=== PATIENT | female | born 1990 | race Caucasian/White ===

== ENCOUNTER 2016-07-05 10:38 | Emergency (ER) | payer MEDICAID ==
[2016-07-05 10:47] VITALS: BP 114/75
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
== END 2016-07-05 11:15 | disposition left against medical advice (07) ==
LOC: ER 10:38
DX: R68.89 Other general symptoms and signs (principal); K21.9 Gastro-esophageal reflux disease without esophagitis; Z91.040 Latex allergy status; Z91.013 Allergy to seafood; Z91.018 Allergy to other foods
CPT/HCPCS: 99281

== ENCOUNTER → 2016-08-17 | Outpatient (CLI) | payer MEDICAID | LOC: WI 10:19 | PROVIDERS: ATTEND Family Medicine | DX: N63 Unspecified lump in breast (principal) | CPT/HCPCS: 76641 ==

== ENCOUNTER → 2016-09-28 | Day surgery (SDC) | payer MEDICAID ==
[~2016-09-28] MED LIST: BETAMET ACET/BETAMET NA INJ 6 MG/1 ML ONE; BUPIVACAINE HCL 0.5 % INJ/PF 30 ML SDV ONE; METHYLPREDNISOLONE ACETATE INJ 40 MG/1 ML ML ONE
== END ==
LOC: CCL 12:34
PROVIDERS: ATTEND Radiology Radiation Oncology
PROC: 3E0U33Z Introduction of Anti-inflammatory into Joints, Percutaneous Approach (ICD-10-PCS; principal; 2016-09-28)
DX: M54.16 Radiculopathy, lumbar region (principal)
CPT/HCPCS: 77003; 62322; 64493; Q9966; J1020; J0702

== ENCOUNTER 2016-09-29 10:05 | Day surgery (SDC) | payer MEDICAID ==
[2016-09-29] MEDS ORDERED: NALOXONE HCL INJ/PF 0.4 MG/1 ML SDV ONE (10:09)
[2016-09-29] MEDS ORDERED: ONDANSETRON HCL INJ/PF 4 MG/2 ML SDV ONE (10:09)
[2016-09-29] MEDS ORDERED: DIPHENHYDRAMINE HCL 50 MG/ML VIAL ONE (10:09)
[2016-09-29] MEDS ORDERED: FLUMAZENIL INJ 0.5 MG/5 ML VIAL IV ONE (10:10)
[2016-09-29] MEDS ORDERED: EPINEPHRINE INJ 1 MG/10 ML DISP.SYRIN ONE (10:10)
[2016-09-29] MEDS ORDERED: GLUCAGON,HUMAN RECOMB 1 MG INJ ONE (10:10)
[2016-09-29] MEDS: MIDAZOLAM 2 MG/2 ML INJ ONE ×2 (11:58→12:04)
[2016-09-29] MEDS: FENTANYL CITRATE INJ/PF 100 MCG/2 ML AMPUL ONE ×2 (12:00→12:02)
--- NOTE | 2016-09-29 12:10 | Operative Report ---
Operative Report DATE OF SURGERY: 09/29/16 Operative Report: The risks benefits and alternatives of the procedure explained to the patient in detail and informed consent is obtained. A GIF Olympus video scope was inserted into the patient's mouth and hypopharynx ,the esophagus is identified intubated and insufflated ,the scope was then advanced through the esophagus stomach and duodenum ,retroflexion maneuver is done, the esophagus stomach and first and second portions of the duodenum examined PREOPERATIVE DIAGNOSIS: Possible GI bleeding POSTOPERATIVE DIAGNOSIS: Gastric erosion. Gastritis. No active bleeding noted OPERATION: EGD with biopsy SURGEON: FLORIN SOFIA ANESTHESIA: Moderate Sedation - 4 mg of Versed, fentanyl. Conscious sedation monitoring time 30 minutes. TISSUE REMOVED OR ALTERED: Gastric specimen obtained to rule out Helicobacter pylori COMPLICATIONS: None. ESTIMATED BLOOD LOSS: None. INTRAOPERATIVE FINDINGS: As described above. Normal esophagus. First and second portions of the duodenum are normal. PROCEDURE: Patient tolerated the procedure well. No immediate postprocedure complications are noted. Patient discharged in good condition. Discharge date 09/29/2016. Discharge diet: Regular. Discharge activity: Regular. 2-3 week follow-up to discuss findings. We will wait on biopsies. Patient was instructed to call the office or proceed to the emergency room should there be any further problems or questions.
[2016-09-29 13:12] VITALS: BP 102/59
== END 2016-09-29 13:15 | disposition home or self-care (01) ==
LOC: END 10:05
PROVIDERS: ATTEND Internal Medicine Gastroenterology
PROC: 0DB68ZX Excision of Stomach, Via Natural or Artificial Opening Endoscopic, Diagnostic (ICD-10-PCS; principal; 2016-09-29 10:30)
DX: K29.50 Unspecified chronic gastritis without bleeding (principal); K25.9 Gastric ulcer, unspecified as acute or chronic, without hemorrhage or perforation; K21.9 Gastro-esophageal reflux disease without esophagitis; K92.1 Melena; F17.210 Nicotine dependence, cigarettes, uncomplicated; G43.909 Migraine, unspecified, not intractable, without status migrainosus; K29.51 Unspecified chronic gastritis with bleeding; Z88.5 Allergy status to narcotic agent; Z88.8 Allergy status to other drugs, medicaments and biological substances; Z91.040 Latex allergy status
CPT/HCPCS: 43239; 88305 ×2; J2250; J3010; J0171; J1200; J1610; J2310; J2405; J3490

== ENCOUNTER 2016-12-25 09:35 | Day surgery (SDC) | payer MEDICAID ==
[~2016-12-25 09:35] MED LIST changes: -BETAMET ACET/BETAMET NA INJ 6 MG/1 ML ONE; -BUPIVACAINE HCL 0.5 % INJ/PF 30 ML SDV ONE; -METHYLPREDNISOLONE ACETATE INJ 40 MG/1 ML ML ONE; +PROPOFOL INJ 200 MG/20 ML VIAL IV ONE
[2016-12-25 11:28] VITALS: BP 100/64
--- NOTE | 2016-12-25 14:00 | Operative Report ---
Operative Report DATE OF SURGERY: 12/25/16 Operative Report: The risks, benefits and alternatives of the procedure including risks of bleeding, perforation requiring surgery are explained to the patient detail and informed consent was obtained. Patient was taken back to the endoscopy suite and placed in the left, lateral decubital position. Timeout was called. Propofol medications administered. A rectal examination was done which did not reveal any masses, tears or fissures. An Olympus videoscope was inserted into the patient's rectum. The scope was then carefully advanced all the way to the cecum. The cecum was identified by the usual anatomical landmarks including the ileocecal valve as well as the appendiceal office. Photodocumentation is obtained. The scope was then sequentially pulled back via the various segments of the colon including the ascending colon, hepatic flexure, transverse colon, splenic flexure, descending colon and finally to the rectosigmoid portions of the colon. Retroflexion maneuver was performed. PREOPERATIVE DIAGNOSIS: Abdominal pain, change of bowel habits rule out Crohn's disease POSTOPERATIVE DIAGNOSIS: Biopsy specimens obtained in the terminal ileum rule out Crohn's disease; there is some mild nodularity that is observed. Internal hemorrhoids OPERATION: Colonoscopy with biopsy SURGEON: FLORIN SOFIA ANESTHESIA: LMAC TISSUE REMOVED OR ALTERED: Small intestinal specimen obtained as noted in the terminal ileum COMPLICATIONS: None. ESTIMATED BLOOD LOSS: None. INTRAOPERATIVE FINDINGS: As described above. Rest of the colon normal. PROCEDURE: Patient tolerated procedure well. No immediate postprocedure complications are noted. Patient discharged in good condition. Discharge date 12/25/2016. Discharge diet: Regular. Discharge activity: Regular. 2-3 week follow-up to discuss findings. We will wait on pathology. Patient is instructed to call the office or proceed to the emergency room should there be any further problems or questions.
== END 2016-12-25 11:26 | disposition home or self-care (01) ==
LOC: END 09:35
PROVIDERS: ATTEND Internal Medicine Gastroenterology
PROC: 0DBB8ZX Excision of Ileum, Via Natural or Artificial Opening Endoscopic, Diagnostic (ICD-10-PCS; principal; 2016-12-25 14:00)
DX: K64.8 Other hemorrhoids (principal); K92.1 Melena; K21.9 Gastro-esophageal reflux disease without esophagitis; J45.40 Moderate persistent asthma, uncomplicated; F31.9 Bipolar disorder, unspecified; F17.210 Nicotine dependence, cigarettes, uncomplicated; G43.519 Persistent migraine aura without cerebral infarction, intractable, without status migrainosus; Z79.51 Long term (current) use of inhaled steroids; Z79.899 Other long term (current) drug therapy
CPT/HCPCS: 45380; 810; 88305; J2704

== ENCOUNTER → 2017-01-25 | Outpatient (CLI) | payer MEDICAID ==
--- NOTE | 2017-01-25 17:14 | RADIOLOGY REPORT (SQ) ---
EXAM DESCRIPTION: HIP LEFT AP/LATERAL COMPLETED DATE/TIME: 01/25/2017 2:59 pm REASON FOR STUDY: PAIN IN LEFT HIP M25.552 PAIN IN LEFT HIP COMPARISON: 07/06/2014, 10/16/2015, 04/22/2016 NUMBER OF VIEWS: Two views. TECHNIQUE: AP pelvis and additional frog-leg view of the left hip. LIMITATIONS: None. FINDINGS: MINERALIZATION: Normal. LEFT HIP: No fracture or dislocation. A left hip prosthesis is present, with an acetabular cup ancho red with a single screw. There is faint lucency around the lower half of the femoral component hardw are worrisome for loosening. RIGHT HIP: No fracture or dislocation. No worrisome bone lesions. PUBIS AND ISCHIUM: No fracture. PELVIS: No fracture. SACRUM: No fracture or dislocation. No worrisome bone lesions. LOWER LUMBAR SPINE: No fracture or dislocation. No worrisome bone lesions. No significant disc disea se. SOFT TISSUES: No findings. OTHER: No other significant finding. IMPRESSION: Left hip prosthesis in good positioning. No fracture. There is lucency around the inferior half of the femoral component of the prosthesis. This could ind icate loosening. Consider bone scan for followup TECHNICAL DOCUMENTATION: JOB ID: [id number] [employer]- All Rights Reserved
== END ==
LOC: OD 14:26
PROVIDERS: ATTEND Family Medicine
DX: M25.552 Pain in left hip (principal)

== ENCOUNTER 2017-02-11 19:05 | Emergency (ER) | payer MEDICAID ==
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
[2017-02-11 20:14] LABS: ABSOLUTE BASOPHILS # (AUTO) 0.1 10^3/uL (0.0-0.2); ABSOLUTE EOSINOPHILS # (AUTO) 0.3 10^3/uL (0.0-0.6); ABSOLUTE LYMPHOCYTES (AUTO) 4.1 10^3/uL (0.5-4.7); ABSOLUTE MONOCYTES (AUTO) 0.7 10^3/uL (0.1-1.4); ABSOLUTE NEUT (AUTO) 6.4 10^3/uL (1.7-8.2); BASOPHILS % (AUTO) 0.5 % (0-2); EOSINOPHILS % (AUTO) 2.5 % (0-6); HEMOGLOBIN 13.1 g/dL (12.0-15.5); HGB HCT DIFFERENCE 0.3; LYMPHOCYTES % (AUTO) 35.3 % (13-45); MEAN CORPUSCULAR HEMOGLOBIN 26.6 pg (27.0-33.4); MEAN CORPUSCULAR HGB CONC 33.6 g/dL (32.0-36.0); MEAN CORPUSCULAR VOLUME 79 fl (80-97); MONOCYTES % (AUTO) 6.3 % (3-13); RED BLOOD COUNT 4.91 10^6/uL (3.72-5.28); RED CELL DISTRIBUTION WIDTH 14.3 % (11.5-14.0); SEGMENTED NEUTROPHILS % (AUTO) 55.4 % (42-78); WHITE BLOOD COUNT 11.6 10^3/uL (4.0-10.5)
[2017-02-11 20:32] LABS: ADD ON TESTING BLD IN LAB ACKNOWLEDGE
[2017-02-11 20:36] LABS: ANION GAP 10 (5-19); BLOOD UREA NITROGEN 9 mg/dL (7-20); CALCIUM 9.2 mg/dL (8.4-10.2); CARBON DIOXIDE 25 mmol/L (22-30); CHLORIDE 104 mmol/L (98-107); CREATININE RESULT 0.84 mg/dL (0.52-1.25); GLUCOSE 163 mg/dL (75-110); POTASSIUM 4.1 mmol/L (3.6-5.0); SODIUM 138.8 mmol/L (137-145)
[2017-02-11 20:43] LABS: C-REACTIVE PROTEIN 19.9 mg/L (<10.0)
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
--- NOTE | 2017-02-11 22:00 | RADIOLOGY REPORT (SQ) ---
EXAM DESCRIPTION: HIP LEFT AP/LATERAL COMPLETED DATE/TIME: 02/11/2017 9:00 pm REASON FOR STUDY: pain COMPARISON: None. NUMBER OF VIEWS: Two views. TECHNIQUE: AP pelvis and additional frog-leg view of the left hip. LIMITATIONS: None. FINDINGS: MINERALIZATION: Normal. LEFT HIP: No fracture or dislocation. Left total hip arthroplasty hardware appears in expected posit ion. . RIGHT HIP: No fracture or dislocation. No worrisome bone lesions. PUBIS AND ISCHIUM: No fracture. PELVIS: No fracture. SACRUM: No fracture or dislocation. No worrisome bone lesions. LOWER LUMBAR SPINE: No fracture or dislocation. No worrisome bone lesions. No significant disc disea se. SOFT TISSUES: No findings. OTHER: No other significant finding. IMPRESSION: NO RADIOGRAPHIC EVIDENCE OF ACUTE INJURY. TECHNICAL DOCUMENTATION: JOB ID: [id number] [employer]- All Rights Reserved
[2017-02-11 22:03] VITALS: BP 139/80
== END 2017-02-11 21:55 | disposition home or self-care (01) ==
LOC: ER 19:05
DX: M25.552 Pain in left hip (principal); F17.200 Nicotine dependence, unspecified, uncomplicated
CPT/HCPCS: 36415; 80048; 84703; 85025; 85652; 86140; 87040; 99284

== ENCOUNTER → 2017-02-14 | Outpatient (CLI) | payer MEDICAID ==
[2017-02-14 15:27] LABS: ABSOLUTE EOSINOPHILS # (AUTO) 0.2 10^3/uL (0.0-0.6); ABSOLUTE LYMPHOCYTES (AUTO) 3.5 10^3/uL (0.5-4.7); ABSOLUTE MONOCYTES (AUTO) 0.8 10^3/uL (0.1-1.4); BASOPHILS % (AUTO) 0.4 % (0-2); EOSINOPHILS % (AUTO) 1.5 % (0-6); HEMATOCRIT 37.6 % (36.0-47.0); HEMOGLOBIN 12.7 g/dL (12.0-15.5); HGB HCT DIFFERENCE 0.5; LYMPHOCYTES % (AUTO) 30.2 % (13-45); MEAN CORPUSCULAR HEMOGLOBIN 26.5 pg (27.0-33.4); MEAN CORPUSCULAR HGB CONC 33.6 g/dL (32.0-36.0); MEAN CORPUSCULAR VOLUME 79 fl (80-97); MONOCYTES % (AUTO) 6.9 % (3-13); RED BLOOD COUNT 4.77 10^6/uL (3.72-5.28); RED CELL DISTRIBUTION WIDTH 14.3 % (11.5-14.0); WHITE BLOOD COUNT 11.5 10^3/uL (4.0-10.5)
[2017-02-14 15:44] LABS: ANION GAP 11 (5-19); BLOOD UREA NITROGEN 11 mg/dL (7-20); CALCIUM 9.2 mg/dL (8.4-10.2); CARBON DIOXIDE 24 mmol/L (22-30); CHLORIDE 103 mmol/L (98-107); CREATININE RESULT 0.86 mg/dL (0.52-1.25); GLUCOSE 105 mg/dL (75-110); POTASSIUM 4.1 mmol/L (3.6-5.0); SODIUM 137.8 mmol/L (137-145)
[2017-02-14 16:08] LABS: ERYTHROCYTE SEDIMENTATION RATE 28 mm/hr (0-20)
== END ==
LOC: OD 14:47
PROVIDERS: ATTEND Orthopaedic Surgery
DX: T84.52XA Infection and inflammatory reaction due to internal left hip prosthesis, initial encounter (principal)
CPT/HCPCS: 36415; 80048; 82330; 85025; 85652; 86140

== ENCOUNTER → 2017-02-19 | Outpatient (CLI) | payer MEDICAID ==
--- NOTE | 2017-02-19 17:36 | RADIOLOGY REPORT (SQ) ---
EXAM DESCRIPTION: NM 3 PHASE BONE SCAN COMPLETED DATE/TIME: 02/19/2017 3:59 pm REASON FOR STUDY: L HIP PAIN M25.50 PAIN IN UNSPECIFIED JOINT M25.552 PAIN IN LEFT HIP COMPARISON: Bone scan 01/13/2016 hip radiographs 02/11/2017 RADIONUCLIDE AND DOSE: 20 millicuries Tc99m HDP. The route of agent administration: Intravenous. ADDITIONAL DRUGS AND DOSES: None. TECHNIQUE: Following injection of the radiopharmaceutical, serial blood flow images acquired. Equil ibrium blood pool images then acquired. Routine delayed images at 3 hours acquired of the areas of c linical concern with additional focused images as needed. AREA OF INTEREST: Left hip LIMITATIONS: None. FINDINGS: VASCULAR FLOW IMAGES: No asymmetry or focal areas of hyperemia. BLOOD POOL IMAGES: No asymmetry or focal areas of soft-tissue hyper-perfusion. BONES: Photopenia in the left hip from the left hip arthroplasty. KIDNEYS: Not included. OTHER: No other significant finding. IMPRESSION: Normal 3 phase bone scan. There is no evidence of infection. COMMENT: Quality measure 147: Current bone scan is compared with any available plain radiographs, p rior bone scans, and CT/MRI. TECHNICAL DOCUMENTATION: JOB ID: [id number] [employer]- All Rights Reserved
== END ==
LOC: RAD 11:17
PROVIDERS: ATTEND Orthopaedic Surgery
DX: M25.552 Pain in left hip (principal)
CPT/HCPCS: 78315; A9561; Q9969

== ENCOUNTER → 2017-04-23 | Outpatient (CLI) | payer MEDICAID ==
--- NOTE | 2017-04-23 15:56 | RADIOLOGY REPORT (SQ) ---
EXAM DESCRIPTION: HIP LEFT AP/LATERAL COMPLETED DATE/TIME: 04/23/2017 3:13 pm REASON FOR STUDY: PAIN IN LEFT HIP M25.552 PAIN IN LEFT HIP COMPARISON: Three-phase bone scan 02/19/2017 Left hip films 02/11/2017, 01/25/2017 NUMBER OF VIEWS: Two views. TECHNIQUE: AP pelvis and additional frog-leg view of the left hip. LIMITATIONS: None. FINDINGS: MINERALIZATION: Normal. LEFT HIP: Left hip replacement in good alignment. No lucency around the hardware worrisome for loose luis RIGHT HIP: No fracture or dislocation. No worrisome bone lesions. PUBIS AND ISCHIUM: No fracture. PELVIS: No fracture. SACRUM: No fracture or dislocation. No worrisome bone lesions. LOWER LUMBAR SPINE: No fracture or dislocation. No worrisome bone lesions. No significant disc disea se. SOFT TISSUES: No findings. OTHER: No other significant finding. IMPRESSION: Left hip replacement in good alignment. No lucency around the hardware worrisome for lo osening TECHNICAL DOCUMENTATION: JOB ID: [id number]- All Rights Reserved
== END ==
LOC: OD 14:55
PROVIDERS: ATTEND Nurse Practitioner Acute Care
DX: M25.552 Pain in left hip (principal)

== ENCOUNTER 2017-04-24 19:10 | Emergency (ER) | payer MEDICAID ==
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
--- NOTE | 2017-04-24 22:11 | RADIOLOGY REPORT (SQ) ---
EXAM DESCRIPTION: CHEST SINGLE VIEW COMPLETED DATE/TIME: 04/24/2017 9:44 pm REASON FOR STUDY: chest pain COMPARISON: 01/20/2015. EXAM PARAMETERS: NUMBER OF VIEWS: One view. TECHNIQUE: Single frontal radiographic view of the chest acquired. RADIATION DOSE: NA LIMITATIONS: None. FINDINGS: LUNGS AND PLEURA: No opacities, masses or pneumothorax. No pleural effusion. MEDIASTINUM AND HILAR STRUCTURES: No masses. Contour normal. HEART AND VASCULAR STRUCTURES: Heart normal in size. Normal vasculature. BONES: No acute findings. HARDWARE: None in the chest. OTHER: No other significant finding. IMPRESSION: NO ACUTE RADIOGRAPHIC FINDING IN THE CHEST. TECHNICAL DOCUMENTATION: JOB ID: [id number] [employer]- All Rights Reserved
[2017-04-24 22:16] LABS: ABSOLUTE EOSINOPHILS # (AUTO) 0.2 10^3/uL (0.0-0.6); ABSOLUTE LYMPHOCYTES (AUTO) 3.4 10^3/uL (0.5-4.7); ABSOLUTE MONOCYTES (AUTO) 0.6 10^3/uL (0.1-1.4); ABSOLUTE NEUT (AUTO) 4.2 10^3/uL (1.7-8.2); BASOPHILS % (AUTO) 0.5 % (0-2); EOSINOPHILS % (AUTO) 2.5 % (0-6); HEMATOCRIT 35.6 % (36.0-47.0); HEMOGLOBIN 11.9 g/dL (12.0-15.5); HGB HCT DIFFERENCE 0.1; LYMPHOCYTES % (AUTO) 40.4 % (13-45); MEAN CORPUSCULAR HEMOGLOBIN 26.6 pg (27.0-33.4); MEAN CORPUSCULAR HGB CONC 33.5 g/dL (32.0-36.0); MEAN CORPUSCULAR VOLUME 79 fl (80-97); MONOCYTES % (AUTO) 7.3 % (3-13); RED BLOOD COUNT 4.48 10^6/uL (3.72-5.28); RED CELL DISTRIBUTION WIDTH 15.4 % (11.5-14.0); SEGMENTED NEUTROPHILS % (AUTO) 49.3 % (42-78); WHITE BLOOD COUNT 8.4 10^3/uL (4.0-10.5)
[2017-04-24 22:25] LABS: ALANINE AMINOTRANSFERASE 29 U/L (9-52); ALBUMIN 3.7 g/dL (3.5-5.0); ALKALINE PHOSPHATASE 77 U/L (38-126); ANION GAP 10 (5-19); ASPARTATE AMINO TRANSFERASE 15 U/L (14-36); BILIRUBIN,DIRECT 0.3 mg/dL (0.0-0.4); BILIRUBIN,TOTAL 0.3 mg/dL (0.2-1.3); BLOOD UREA NITROGEN 12 mg/dL (7-20); CALCIUM 9.3 mg/dL (8.4-10.2); CARBON DIOXIDE 25 mmol/L (22-30); CHLORIDE 106 mmol/L (98-107); CREATININE RESULT 0.94 mg/dL (0.52-1.25); GLUCOSE 106 mg/dL (75-110); TOTAL PROTEIN 6.9 g/dL (6.3-8.2)
[2017-04-24 22:28] LABS: APPEARANCE,URINE CLEAR; BILIRUBIN,URINE NEGATIVE (NEGATIVE); GLUCOSE, URINE NEGATIVE (NEGATIVE); KETONES,URINE NEGATIVE (NEGATIVE); LEUKOCYTE ESTERASE,URINE NEGATIVE (NEGATIVE); NITRITE,URINE NEGATIVE (NEGATIVE); PROTEIN,URINE NEGATIVE (NEGATIVE); URINE SPECIFIC GRAVITY 1.015; UROBILINOGEN,URINE NEGATIVE mg/dL (<2.0)
--- NOTE | 2017-04-24 23:11 | EKG REPORT ---
SEVERITY:- BORDERLINE ECG - SINUS TACHYCARDIA BORDERLINE T ABNORMALITIES, INFERIOR LEADS : Confirmed by: Marcellus Green 24-Apr-2017 23:10:41
--- NOTE | 2017-04-24 23:44 | RADIOLOGY REPORT (SQ) ---
EXAM DESCRIPTION: CTA CHEST COMPLETED DATE/TIME: 04/24/2017 11:31 pm REASON FOR STUDY: chest pain rt side COMPARISON: None. TECHNIQUE: CT scan of the chest performed using helical scanning technique with dynamic intravenous contrast injection. Images reviewed with lung, soft tissue and bone windows. Reconstructed coronal and sagittal MPR images reviewed. Additional 3 dimensional post-processing performed to develop Maximal Intensity Projection images (OR P). All images stored on PACS. All CT scanners at this facility use dose modulation, iterative reconstruction, and/or weight based d osing when appropriate to reduce radiation dose to as low as reasonably achievable (ALARA). [facility]: Dose Right [facility]: CareDose [facility]: Dose Right [facility]: Teradose 4D [facility]: Mobilitus CONTRAST TYPE AND DOSE: contrast/concentration: Isovue 370.00 mg/ml; Total Contrast Delivered: 78.0 ml; Total Saline Delivered: 50.0 ml Contrast bolus adequate for pulmonary arteries and aorta. RENAL FUNCTION: Creatinine 0.94. RADIATION DOSE: CT Rad equipment meets quality standard of care and radiation dose reduction techniq ues were employed. CTDIvol: 14.9 - 22.7 mGy. DLP: 861 mGy-cm. . LIMITATIONS: None. FINDINGS: LUNGS AND PLEURA: Minimal faint ground-glass opacities in the right lower lobe. No masses , infiltrates, pneumothorax. No pleural effusions, calcifications. AORTA AND GREAT VESSELS: No aneurysm. Contrast bolus not optimized for the aorta. HEART: No pericardial effusion. No significant coronary artery calcifications. PULMONARY ARTERIES: No emboli visualized in the main pulmonary arteries or the segmental branches. HILAR AND MEDIASTINAL STRUCTURES: No identified masses or abnormal nodes. HARDWARE: None in the chest. UPPER ABDOMEN: No significant findings. Limited exam. THYROID AND OTHER SOFT TISSUES: No masses. No adenopathy. BONES: No acute or significant finding. 3D MIPS: Confirm above findings. OTHER: No other significant finding. IMPRESSION: NORMAL CTA OF THE CHEST. NO PULMONARY EMBOLI. A FEW MINIMAL FAINT GROUND-GLASS OPACITIES IN THE RIGHT LOWER LOBE. NONSPECIFIC. MAY BE DUE TO ATEL ECTASIS OR MILD PNEUMONITIS. COMMENT: Quality ID # [id number]: Final reports with documentation of one or more dose reduction techniques (e.g., Automated exposure control, adjustment of the mA and/or kV according to patient size, use of iterative reconstruction technique) TECHNICAL DOCUMENTATION: JOB ID: [id number] [facility]- All Rights Reserved
[2017-04-25 00:05] VITALS: BP 119/78
== END 2017-04-25 00:10 | disposition home or self-care (01) ==
LOC: ER 19:10
DX: J18.1 Lobar pneumonia, unspecified organism (principal); R07.9 Chest pain, unspecified; F17.200 Nicotine dependence, unspecified, uncomplicated; K21.9 Gastro-esophageal reflux disease without esophagitis; Z96.642 Presence of left artificial hip joint; Z98.51 Tubal ligation status; Z90.710 Acquired absence of both cervix and uterus; Z91.013 Allergy to seafood
CPT/HCPCS: 36415; 71010; 71275; 80053; 81001; 84484; 85025; 85379; 93005; 93010; 99285

== ENCOUNTER 2017-05-09 15:40 | Emergency (ER) | payer MEDICAID ==
[2017-05-09] MEDS ORDERED: NORMAL SALINE 1000 ML 1,000 ML IV ONE (16:44)
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
--- NOTE | 2017-05-09 17:10 | RADIOLOGY REPORT (SQ) ---
EXAM DESCRIPTION: CHEST PA/LAT COMPLETED DATE/TIME: 05/09/2017 4:57 pm REASON FOR STUDY: cough; eval for improv vs worsening of RLL pna COMPARISON: 01/20/2015 EXAM PARAMETERS: NUMBER OF VIEWS: two views TECHNIQUE: Digital Frontal and Lateral radiographic views of the chest acquired. RADIATION DOSE: NA LIMITATIONS: none FINDINGS: LUNGS AND PLEURA: No opacities, masses or pneumothorax. No pleural effusion. MEDIASTINUM AND HILAR STRUCTURES: No masses or contour abnormalities. HEART AND VASCULAR STRUCTURES: Heart normal size. No evidence for failure. BONES: No acute findings. HARDWARE: None in the chest. OTHER: No other significant finding. IMPRESSION: NO SIGNIFICANT RADIOGRAPHIC FINDING IN THE CHEST. TECHNICAL DOCUMENTATION: JOB ID: [id number] [employer]- All Rights Reserved
[2017-05-09 17:22] LABS: ABSOLUTE BASOPHILS # (AUTO) 0.1 10^3/uL (0.0-0.2); ABSOLUTE EOSINOPHILS # (AUTO) 0.1 10^3/uL (0.0-0.6); ABSOLUTE LYMPHOCYTES (AUTO) 2.9 10^3/uL (0.5-4.7); ABSOLUTE MONOCYTES (AUTO) 0.6 10^3/uL (0.1-1.4); ABSOLUTE NEUT (AUTO) 5.5 10^3/uL (1.7-8.2); BASOPHILS % (AUTO) 0.9 % (0-2); EOSINOPHILS % (AUTO) 1.4 % (0-6); HEMATOCRIT 41.3 % (36.0-47.0); HEMOGLOBIN 13.5 g/dL (12.0-15.5); LYMPHOCYTES % (AUTO) 31.9 % (13-45); MEAN CORPUSCULAR HEMOGLOBIN 25.8 pg (27.0-33.4); MEAN CORPUSCULAR HGB CONC 32.8 g/dL (32.0-36.0); MEAN CORPUSCULAR VOLUME 79 fl (80-97); MONOCYTES % (AUTO) 6.1 % (3-13); PLATELET COUNT 259 10^3/uL (150-450); RED BLOOD COUNT 5.24 10^6/uL (3.72-5.28); RED CELL DISTRIBUTION WIDTH 14.9 % (11.5-14.0); SEGMENTED NEUTROPHILS % (AUTO) 59.7 % (42-78); TOTAL CELLS COUNTED % (AUTO) 100 %; WHITE BLOOD COUNT 9.1 10^3/uL (4.0-10.5)
[2017-05-09 17:42] LABS: ANION GAP 11 (5-19); BLOOD UREA NITROGEN 12 mg/dL (7-20); CALCIUM 9.8 mg/dL (8.4-10.2); CARBON DIOXIDE 25 mmol/L (22-30); CHLORIDE 106 mmol/L (98-107); GLUCOSE 113 mg/dL (75-110); POTASSIUM 4.1 mmol/L (3.6-5.0); SODIUM 142.1 mmol/L (137-145)
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
[2017-05-09 19:45] VITALS: BP 101/66
== END 2017-05-09 19:43 | disposition home or self-care (01) ==
LOC: ER 15:40
DX: J40 Bronchitis, not specified as acute or chronic (principal); M94.0 Chondrocostal junction syndrome [Tietze]; R07.89 Other chest pain; Z91.040 Latex allergy status; Z88.6 Allergy status to analgesic agent; Z91.013 Allergy to seafood; Z87.891 Personal history of nicotine dependence
CPT/HCPCS: 99283; 96360; 36415; 87040; 85025; 80048; 71020; J7030

== ENCOUNTER → 2017-05-24 | Outpatient (CLI) | payer MEDICAID ==
--- NOTE | 2017-05-24 11:19 | RADIOLOGY REPORT (SQ) ---
EXAM DESCRIPTION: CHEST PA/LATERAL COMPLETED DATE/TIME: 05/24/2017 11:08 am REASON FOR STUDY: MODERATE PERSISTENT ASTHMA WITH (ACUTE) EXACERBATION COMPARISON: CT angio chest 04/24/2017 Two-view chest 05/09/2017 EXAM PARAMETERS: NUMBER OF VIEWS: two views TECHNIQUE: Digital Frontal and Lateral radiographic views of the chest acquired. RADIATION DOSE: NA LIMITATIONS: none FINDINGS: LUNGS AND PLEURA: No opacities, masses or pneumothorax. No pleural effusion. MEDIASTINUM AND HILAR STRUCTURES: No masses or contour abnormalities. HEART AND VASCULAR STRUCTURES: Heart normal size. No evidence for failure. BONES: No acute findings. HARDWARE: None in the chest. OTHER: No other significant finding. IMPRESSION: NO SIGNIFICANT RADIOGRAPHIC FINDING IN THE CHEST. TECHNICAL DOCUMENTATION: JOB ID: [id number] [employer]- All Rights Reserved
== END ==
LOC: OD 10:54
PROVIDERS: ATTEND Family Medicine
DX: J45.41 Moderate persistent asthma with (acute) exacerbation (principal)
CPT/HCPCS: 71046

== ENCOUNTER 2017-07-11 17:54 | Emergency (ER) | payer MEDICAID ==
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
--- NOTE | 2017-07-11 19:30 | RADIOLOGY REPORT (SQ) ---
EXAM DESCRIPTION: CHEST PA/LAT COMPLETED DATE/TIME: 07/11/2017 7:21 pm REASON FOR STUDY: chest pain, sob COMPARISON: 05/24/2017. EXAM PARAMETERS: NUMBER OF VIEWS: two views TECHNIQUE: Digital Frontal and Lateral radiographic views of the chest acquired. RADIATION DOSE: NA LIMITATIONS: none FINDINGS: LUNGS AND PLEURA: No opacities, masses or pneumothorax. No pleural effusion. MEDIASTINUM AND HILAR STRUCTURES: No masses or contour abnormalities. HEART AND VASCULAR STRUCTURES: Heart normal size. No evidence for failure. BONES: No acute findings. HARDWARE: None in the chest. OTHER: No other significant finding. IMPRESSION: NO SIGNIFICANT RADIOGRAPHIC FINDING IN THE CHEST. TECHNICAL DOCUMENTATION: JOB ID: [id number] [employer]- All Rights Reserved Reading location - IP/workstation name: [email or web address]
[2017-07-11 20:46] LABS: ABSOLUTE BASOPHILS # (AUTO) 0.1 10^3/uL (0.0-0.2); ABSOLUTE EOSINOPHILS # (AUTO) 0.1 10^3/uL (0.0-0.6); ABSOLUTE LYMPHOCYTES (AUTO) 3.2 10^3/uL (0.5-4.7); ABSOLUTE MONOCYTES (AUTO) 0.6 10^3/uL (0.1-1.4); ABSOLUTE NEUT (AUTO) 5.3 10^3/uL (1.7-8.2); EOSINOPHILS % (AUTO) 1.2 % (0-6); HEMATOCRIT 41.8 % (36.0-47.0); HEMOGLOBIN 13.9 g/dL (12.0-15.5); MEAN CORPUSCULAR HEMOGLOBIN 25.8 pg (27.0-33.4); MEAN CORPUSCULAR HGB CONC 33.2 g/dL (32.0-36.0); MEAN CORPUSCULAR VOLUME 78 fl (80-97); MONOCYTES % (AUTO) 6.6 % (3-13); PLATELET COUNT 251 10^3/uL (150-450); RED BLOOD COUNT 5.37 10^6/uL (3.72-5.28); RED CELL DISTRIBUTION WIDTH 16.4 % (11.5-14.0); SEGMENTED NEUTROPHILS % (AUTO) 57.2 % (42-78); TOTAL CELLS COUNTED % (AUTO) 100 %; WHITE BLOOD COUNT 9.3 10^3/uL (4.0-10.5)
[2017-07-11 21:04] LABS: ALANINE AMINOTRANSFERASE 24 U/L (9-52); ALBUMIN 4.7 g/dL (3.5-5.0); ALKALINE PHOSPHATASE 102 U/L (38-126); ANION GAP 13 (5-19); ASPARTATE AMINO TRANSFERASE 25 U/L (14-36); BILIRUBIN,DIRECT 0.4 mg/dL (0.0-0.4); BILIRUBIN,TOTAL 0.5 mg/dL (0.2-1.3); BLOOD UREA NITROGEN 9 mg/dL (7-20); CALCIUM 9.9 mg/dL (8.4-10.2); CARBON DIOXIDE 23 mmol/L (22-30); CHLORIDE 106 mmol/L (98-107); GLUCOSE 96 mg/dL (75-110); POTASSIUM 3.7 mmol/L (3.6-5.0); SODIUM 141.8 mmol/L (137-145); TOTAL PROTEIN 8.1 g/dL (6.3-8.2)
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
[2017-07-11 23:37] VITALS: BP 111/63
--- NOTE | 2017-07-12 09:40 | EKG REPORT ---
SEVERITY:- BORDERLINE ECG - SINUS RHYTHM INFERIOR Q WAVES, PROBABLY NORMAL VARIATION BORDERLINE T ABNORMALITIES, INFERIOR LEADS : Confirmed by: Pawel Alvarado MD 12-Jul-2017 09:39:21
== END 2017-07-11 23:38 | disposition home or self-care (01) ==
LOC: ER 17:54
DX: S29.011A Strain of muscle and tendon of front wall of thorax, initial encounter (principal); R07.89 Other chest pain; R06.02 Shortness of breath; X50.1XXA Overexertion from prolonged static or awkward postures, initial encounter; Y93.A9 Activity, other involving cardiorespiratory exercise; Z87.891 Personal history of nicotine dependence
CPT/HCPCS: 36415; 71046; 80053; 84443; 85025; 93005; 93010; 99284

== ENCOUNTER → 2017-08-01 | Outpatient (CLI) | payer MEDICAID ==
--- NOTE | 2017-08-01 13:23 | XCELERA REPORT ---
[address] [address] Transthoracic Echocardiogram Report Name: NINA HURTADO Age: 26 yrs Gender: Female : 1990 Patient Status: Outpatient Patient Location: Study Date: 08/01/2017 08:07 AM Height: 61 in Weight: 211 lb BSA: 1.9 m2 Procedure: A complete two-dimensional transthoracic echocardiogram was performed (2D, M-mode, spectral and color flow Doppler). The study was technically adequate with some images being suboptimal in quality. Reason For Study: ORTHOPNEA Ordering Physician: GARCÍA JOHNS Performed By: Jason Weir Interpretation Summary Left ventricular systolic function is low normal. There is normal left ventricular wall thickness. The left ventricle is grossly normal size. Doppler measurements suggest normal left ventricular diastolic function No regional wall motion abnormalities noted. Borderline right ventricular enlargement. The right ventricular systolic function is normal. The right atrium is normal. The left atrial size is normal. There is no mitral valve stenosis. There is a trace amount of mitral regurgitation There is no aortic valve stenosis No aortic regurgitation is present. There is a trace or physiologic amount of tricuspid regurgitation Tricuspid regurgitation jet envelope not well defined to measure RV systolic pressure accurately. RVSP best estimate is at the upper limits of normal The aortic root is not well visualized but is probably normal size. The inferior vena cava appeared normal and decreased > 50% with respiration (RAP 5-10 mmHg) There is no pericardial effusion. MMode/2D Measurements & Calculations RVDd: 2.6 cm LVIDd: 5.0 cm FS: 30.8 % Ao root diam: 2.3 cm IVSd: 0.68 cm LVIDs: 3.5 cm EDV(Teich): 119.2 ml LVPWd: 0.73 cm ESV(Teich): 49.9 ml Ao root area: 4.2 cm2 EF(Teich): 58.2 % LA dimension: 3.1 cm Doppler Measurements & Calculations MV E max vito: MV P1/2t max vito: Ao V2 max: LV V1 max P.1 cm/sec 92.8 cm/sec 116.4 cm/sec 2.3 mmHg MV A max vito: MV P1/2t: 56.3 msec Ao max PG: LV V1 max: 54.8 cm/sec 5.4 mmHg 75.0 cm/sec MV E/A: 1.6 MVA(P1/2t): 3.9 cm2 MV dec slope: 482.8 cm/sec2 PA V2 max: 120.2 cm/sec PA max P.8 mmHg Left Ventricle The left ventricle is grossly normal size. There is normal left ventricular wall thickness. Left ventricular systolic function is low normal. Doppler measurements suggest normal left ventricular diastolic function. No regional wall motion abnormalities noted. Right Ventricle Borderline right ventricular enlargement. There is normal right ventricular wall thickness. The right ventricular systolic function is normal. Atria The right atrium is normal. The left atrial size is normal. Interarterial septum not well visualized and not well dopplered. Cannot comment on ASD/PFO presence. Mitral Valve The mitral valve is grossly normal. There is no mitral valve stenosis. There is a trace amount of mitral regurgitation. Aortic Valve The aortic valve is grossly normal. There is no aortic valve stenosis. No aortic regurgitation is present. Tricuspid Valve The tricuspid valve is not well visualized, but is grossly normal. There is no tricuspid stenosis. There is a trace or physiologic amount of tricuspid regurgitation. Tricuspid regurgitation jet envelope not well defined to measure RV systolic pressure accurately. Right ventricular systolic pressure is at the upper limits of normal. Pulmonic Valve The pulmonic valve is not well visualized. Great Vessels The aortic root is not well visualized but is probably normal size. The inferior vena cava appeared normal and decreased > 50% with respiration (RAP 5-10 mmHg). Effusions There is no pericardial effusion. : GARCÍA JOHNS > Marcellus Green
== END ==
LOC: SP 07:39
PROVIDERS: ATTEND Internal Medicine Pulmonary Disease
DX: R06.01 Orthopnea (principal)
CPT/HCPCS: 93306

== ENCOUNTER → 2017-11-28 | Outpatient (CLI) | payer MEDICAID ==
--- NOTE | 2017-11-28 10:11 | RADIOLOGY REPORT (SQ) ---
EXAM DESCRIPTION: HIP RIGHT AP/LATERAL COMPLETED DATE/TIME: 11/28/2017 9:59 am REASON FOR STUDY: CHRONIC RT HIP PAIN M25.551 PAIN IN RIGHT HIP pain in the right hip for 4 months COMPARISON: None. NUMBER OF VIEWS: Two views. TECHNIQUE: AP pelvis and additional frog-leg view of the right hip. LIMITATIONS: None. FINDINGS: MINERALIZATION: Normal. RIGHT HIP: No fracture or dislocation. Joint space preserved. No bulky bony spurring. No worrisome bone lesions. LEFT HIP: Left hip replacement, acetabular component anchored with a single screw. Normal alignment at the hardware. PUBIS AND ISCHIUM: No fracture. PELVIS: No fracture. SACRUM: No fracture or dislocation. No worrisome bone lesions. LOWER LUMBAR SPINE: No fracture or dislocation. No worrisome bone lesions. No significant disc disea se. SOFT TISSUES: No findings. OTHER: No other significant finding. IMPRESSION: NEGATIVE STUDY OF THE RIGHT HIP. NO RADIOGRAPHIC EVIDENCE OF ACUTE INJURY. TECHNICAL DOCUMENTATION: JOB ID: [id number] [employer]- All Rights Reserved Reading location - IP/workstation name: [facility]
== END ==
LOC: OD 09:41
PROVIDERS: ATTEND Family Medicine
DX: M25.551 Pain in right hip (principal)

== ENCOUNTER 2018-02-11 10:26 | Day surgery (SDC) | payer MEDICAID ==
--- NOTE | 2018-02-11 12:53 | Operative Report ---
Operative Report DATE OF SURGERY: 02/11/18 Operative Report: The risks benefits and alternatives of the procedure explained to the patient in detail and informed consent is obtained.A GIF Olympus video scope was inserted into the patient's mouth and hypopharynx, the esophagus is identified intubated and insufflated, the scope was then advanced through the esophagus stomach and duodenum, retroflexion maneuver is done., the esophagus stomach and first and second portions of the duodenum examined PREOPERATIVE DIAGNOSIS: Dysphagia POSTOPERATIVE DIAGNOSIS: Esophagitis versus Valencia's status post biopsy. Gastritis status post biopsy rule out Helicobacter pylori OPERATION: EGD with biopsy SURGEON: FLORIN SOFIA ANESTHESIA: LMAC TISSUE REMOVED OR ALTERED: As noted above COMPLICATIONS: None. ESTIMATED BLOOD LOSS: None. INTRAOPERATIVE FINDINGS: As noted above PROCEDURE: Patient tolerated the procedure well. No immediate postprocedure complications are noted. Patient discharged in good condition. Discharge date 02/11/2018. Discharge diet: Regular. Discharge activity: Regular. 2-3-week follow-up to discuss findings. Patient is instructed to call the office or proceed to the emergency room should there be any further problems or questions. Wait on the pathology.
[2018-02-11 13:37] VITALS: BP 105/63
== END 2018-02-11 13:10 | disposition home or self-care (01) ==
LOC: END 10:26
PROVIDERS: ATTEND Internal Medicine Gastroenterology
DX: K29.50 Unspecified chronic gastritis without bleeding (principal); K21.0 Gastro-esophageal reflux disease with esophagitis; J45.40 Moderate persistent asthma, uncomplicated; Z79.899 Other long term (current) drug therapy; Z79.51 Long term (current) use of inhaled steroids; Z88.5 Allergy status to narcotic agent; Z88.8 Allergy status to other drugs, medicaments and biological substances; Z87.891 Personal history of nicotine dependence
CPT/HCPCS: 43239; 731; 88305; J2704

== ENCOUNTER → 2018-03-01 | Outpatient (CLI) | payer MEDICAID ==
--- NOTE | 2018-03-01 10:33 | RADIOLOGY REPORT (SQ) ---
EXAM DESCRIPTION: U/S ABDOMEN COMPLETE W/O DOP COMPLETED DATE/TIME: 03/01/2018 10:15 am REASON FOR STUDY: RUQ PAIN R10.11 RIGHT UPPER QUADRANT PAIN COMPARISON: 12/31/2011. TECHNIQUE: Dynamic and static grayscale images acquired of the abdomen and recorded on PACS. Additio nal selected color Doppler and spectral images recorded. LIMITATIONS: None. FINDINGS: PANCREAS: No masses. Visualized pancreatic duct normal caliber. LIVER: No masses. Echotexture normal. LIVER VASCULATURE: Normal directional flow of the main portal vein and hepatic veins. GALLBLADDER: No stones. Normal wall thickness. No pericholecystic fluid. ULTRASOUND-DETECTED LANDERS'S SIGN: Negative. INTRAHEPATIC DUCTS AND COMMON DUCT: CBD and intrahepatic ducts normal caliber. No filling defects. INFERIOR VENA CAVA: Normal flow. AORTA: No aneurysm. RIGHT KIDNEY: Normal size. Normal echogenicity. No solid or suspicious masses. No hydronephros is. No calcifications. LEFT KIDNEY: Normal size. Normal echogenicity. No solid or suspicious masses. No hydronephrosi s. No calcifications. SPLEEN: Normal size. No solid masses. PERITONEAL AND PLEURAL SPACES: No ascites or effusions. OTHER: No other significant finding. IMPRESSION: NORMAL ABDOMINAL ULTRASOUND. TECHNICAL DOCUMENTATION: JOB ID: [id number] [employer]- All Rights Reserved Reading location - IP/workstation name: [email or web address]
--- NOTE | 2018-03-01 12:54 | RADIOLOGY REPORT (SQ) ---
EXAM DESCRIPTION: NM HIDA SCAN WITH CCK COMPLETED DATE/TIME: 03/01/2018 12:04 pm REASON FOR STUDY: RUQ PAIN R10.11 RIGHT UPPER QUADRANT PAIN COMPARISON: None. RADIONUCLIDE AND DOSE: DOSAGE RADIONUCLIDE: 5.21 millicuries Tc99m Mebrofenin. DOSAGE CCK: 1.9 micrograms. DOSAGE MORPHINE: Not required. The route of agent administration: Intravenous TECHNIQUE: Serial imaging right upper quadrant up to 60 minutes following injection of radionuclide. CCK injected after gallbladder visualized. LIMITATIONS: None. FINDINGS: LIVER: Normal visualization without areas of photopenia. INTRA AND EXTRAHEPATIC BILE DUCTS: Normal accumulation of activity. GALLBLADDER: Normal visualization. Calculated Ejection Fraction of 16%. Below the normal value of 35 % or greater. PHYSICAL RESPONSE: Patients presenting complaint was reproduced. OTHER: No other significant finding. IMPRESSION: LOW GALLBLADDER EJECTION FRACTION. EVIDENCE FOR BILIARY DYSKINESIS. NO CYSTIC OR COMMO N DUCT OBSTRUCTION. TECHNICAL DOCUMENTATION: JOB ID: [id number] [employer]- All Rights Reserved Reading location - IP/workstation name: [email or web address]
== END ==
LOC: RAD 10:51
PROVIDERS: ATTEND Internal Medicine Gastroenterology
DX: R10.11 Right upper quadrant pain (principal)
CPT/HCPCS: 76700; 78227; J2805; A9537; Q9969

== ENCOUNTER → 2018-04-08 | Outpatient (CLI) | payer MEDICAID ==
--- NOTE | 2018-04-09 13:40 | EKG REPORT ---
SEVERITY:- ABNORMAL ECG - SINUS RHYTHM SHORT [place] INTERVAL, ACCELERATED AV CONDUCTION INFERIOR Q WAVES, PROBABLY NORMAL VARIATION BORDERLINE T ABNORMALITIES, INFERIOR LEADS : Confirmed by: Pawel Alvarado MD 09-Apr-2018 13:39:38
== END ==
LOC: OD 09:11
PROVIDERS: ATTEND Family Medicine
DX: R00.2 Palpitations (principal)
CPT/HCPCS: 93005; 93010

== ENCOUNTER → 2018-04-10 | Outpatient (CLI) | payer MEDICAID | LOC: OD 13:41 | PROVIDERS: ATTEND Orthopaedic Surgery | DX: Z53.9 Procedure and treatment not carried out, unspecified reason (principal); Z01.818 Encounter for other preprocedural examination ==

== ENCOUNTER 2018-04-26 08:09 | Inpatient (IN) | payer MEDICAID ==
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
[2018-04-26] MEDS ORDERED: NORMAL SALINE 1000 ML 1,000 ML IV ONE (08:57)
[2018-04-26] MEDS ORDERED: KETOROLAC TROMETHAMINE INJ/PF 30 MG/1 ML SDV IV ONE (08:58)
--- NOTE | 2018-04-26 09:30 | RADIOLOGY REPORT (SQ) ---
EXAM DESCRIPTION: CHEST 2 VIEWS COMPLETED DATE/TIME: 04/26/2018 9:22 am REASON FOR STUDY: left lower pleuritic pain COMPARISON: 07/11/2017 EXAM PARAMETERS: NUMBER OF VIEWS: two views TECHNIQUE: Digital Frontal and Lateral radiographic views of the chest acquired. RADIATION DOSE: NA LIMITATIONS: none FINDINGS: LUNGS AND PLEURA: No opacities, masses or pneumothorax. No pleural effusion. MEDIASTINUM AND HILAR STRUCTURES: No masses or contour abnormalities. HEART AND VASCULAR STRUCTURES: Heart normal size. No evidence for failure. BONES: No acute findings. HARDWARE: None in the chest. OTHER: No other significant finding. IMPRESSION: NO ACUTE RADIOGRAPHIC FINDING IN THE CHEST. TECHNICAL DOCUMENTATION: JOB ID: [id number] [employer]- All Rights Reserved Reading location - IP/workstation name: [email or web address]
[2018-04-26 09:51] LABS: ABSOLUTE EOSINOPHILS # (AUTO) 0.1 10^3/uL (0.0-0.6); ABSOLUTE LYMPHOCYTES (AUTO) 1.9 10^3/uL (0.5-4.7); ABSOLUTE MONOCYTES (AUTO) 0.7 10^3/uL (0.1-1.4); ABSOLUTE NEUT (AUTO) 3.7 10^3/uL (1.7-8.2); BASOPHILS % (AUTO) 0.6 % (0-2); EOSINOPHILS % (AUTO) 1.9 % (0-6); HEMATOCRIT 39.3 % (36.0-47.0); HEMOGLOBIN 13.5 g/dL (12.0-15.5); LYMPHOCYTES % (AUTO) 29.4 % (13-45); MEAN CORPUSCULAR HEMOGLOBIN 27.8 pg (27.0-33.4); MEAN CORPUSCULAR HGB CONC 34.3 g/dL (32.0-36.0); MEAN CORPUSCULAR VOLUME 81 fl (80-97); MONOCYTES % (AUTO) 11.3 % (3-13); PLATELET COUNT 213 10^3/uL (150-450); RED BLOOD COUNT 4.85 10^6/uL (3.72-5.28); RED CELL DISTRIBUTION WIDTH 14.6 % (11.5-14.0); SEGMENTED NEUTROPHILS % (AUTO) 56.8 % (42-78); TOTAL CELLS COUNTED % (AUTO) 100 %; WHITE BLOOD COUNT 6.6 10^3/uL (4.0-10.5)
--- NOTE | 2018-04-26 10:04 | EKG REPORT ---
SEVERITY:- NORMAL ECG - SINUS RHYTHM : Confirmed by: Marcella Arzola MD 26-Apr-2018 10:03:10
[2018-04-26 10:27] LABS: ALANINE AMINOTRANSFERASE 18 U/L (9-52); ALBUMIN 4.3 g/dL (3.5-5.0); ALKALINE PHOSPHATASE 105 U/L (38-126); ANION GAP 12 (5-19); ASPARTATE AMINO TRANSFERASE 16 U/L (14-36); BILIRUBIN,DIRECT 0.3 mg/dL (0.0-0.4); BILIRUBIN,TOTAL 0.7 mg/dL (0.2-1.3); BLOOD UREA NITROGEN 10 mg/dL (7-20); CALCIUM 9.7 mg/dL (8.4-10.2); CARBON DIOXIDE 22 mmol/L (22-30); CHLORIDE 108 mmol/L (98-107); GLUCOSE 112 mg/dL (75-110); POTASSIUM 4.3 mmol/L (3.6-5.0); SODIUM 142.3 mmol/L (137-145); TOTAL PROTEIN 7.3 g/dL (6.3-8.2)
[2018-04-26] MEDS ORDERED: ENOXAPARIN SODIUM INJ 100 MG/1 ML DISP.SYRIN SUBCUT SCH (12:30)
[2018-04-26] MEDS ORDERED: LEVALBUTEROL HCL NEB 0.63 MG/3 ML AMPUL NEB PRN (12:52)
[2018-04-26] MEDS ORDERED: GABAPENTIN 300 MG CAPSULE PO PRN (12:58)
--- NOTE | 2018-04-26 13:04 | RADIOLOGY REPORT (SQ) ---
EXAM DESCRIPTION: CTA CHEST COMPLETED DATE/TIME: 04/26/2018 11:20 am REASON FOR STUDY: pleuritic chest pain, elevate d dimer. COMPARISON: None. TECHNIQUE: CT scan of the chest performed using helical scanning technique with dynamic intravenous contrast injection. Images reviewed with lung, soft tissue and bone windows. Reconstructed coronal and sagittal MPR images reviewed. Additional 3 dimensional post-processing performed to develop Maximal Intensity Projection images (OH P). All images stored on PACS. All CT scanners at this facility use dose modulation, iterative reconstruction, and/or weight based d osing when appropriate to reduce radiation dose to as low as reasonably achievable (ALARA). [facility]: Dose Right [facility]: CareDose [facility]: Dose Right [facility]: Teradose 4D [facility]: [employer] CONTRAST TYPE AND DOSE: contrast/concentration: Isovue 350.00 mg/ml; Total Contrast Delivered: 81.0 ml; Total Saline Delivered: 90.0 ml Contrast bolus optimized for the pulmonary arteries. Not diagnostic for the aorta. RENAL FUNCTION: GFR > 60. RADIATION DOSE: CT Rad equipment meets quality standard of care and radiation dose reduction techniq ues were employed. CTDIvol: 16.5 - 21.2 mGy. DLP: 741 mGy-cm. . LIMITATIONS: None. FINDINGS: LUNGS AND PLEURA: Minimal bibasilar atelectasis. No pleural effusions. No pneumothorax. AORTA AND GREAT VESSELS: No aneurysm. Contrast bolus not optimized for the aorta. HEART: No pericardial effusion. No significant coronary artery calcifications. PULMONARY ARTERIES: Acute pulmonary embolus in the left lower lobe pulmonary artery, best shown on ax ial images 35-39, and multiplanar coronal reconstruction image 49. This report was called to Dr. Roque Guadarrama in the emergency room HILAR AND MEDIASTINAL STRUCTURES: No identified masses or abnormal nodes. HARDWARE: None in the chest. UPPER ABDOMEN: No significant findings. Limited exam. THYROID AND OTHER SOFT TISSUES: No masses. No adenopathy. BONES: No acute or significant finding. 3D MIPS: Confirm above findings. OTHER: No other significant finding. IMPRESSION: Acute pulmonary embolus to the left lower lobe pulmonary artery. COMMENT: Quality ID # [id number]: Final reports with documentation of one or more dose reduction techniques (e.g., Automated exposure control, adjustment of the mA and/or kV according to patient size, use of iterative reconstruction technique) TECHNICAL DOCUMENTATION: JOB ID: [id number] [employer]- All Rights Reserved Reading location - IP/workstation name: [email or web address]
[2018-04-26] MEDS ORDERED: MORPHINE SULFATE 10 MG/ML INJ IV PRN (13:48)
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
[2018-04-26 14:12] LABS: INTERNATIONAL RATION (INR) 1.05; PROTHROMBIN TIME 14.2 SEC (11.4-15.4)
[2018-04-26] MEDS: ACETAMINOPHEN 325 MG TABLET PO PRN ×2 (15:00→23:30)
[2018-04-26 15:10] LABS: CREATINE KINASE MB < 0.22 ng/mL (<4.55); TROPONIN I < 0.012 ng/mL
[2018-04-26 15:47] LABS: ARTERIAL BLOOD H2CO3 0.87 mmol/L (1.05-1.35); ARTERIAL BLOOD O2 SATURATION 97.7 % (94-98); ARTERIAL BLOOD PH 7.44 (7.35-7.45); ARTERIAL BLOOD TOTAL CO2 19.9 mmol/L (21-25)
[2018-04-26 15:49] LABS: ARTERIAL BLOOD FIO2 2LNC
--- NOTE | 2018-04-26 15:58 | RADIOLOGY REPORT (SQ) ---
EXAM DESCRIPTION: VENOUS BILATERAL LOWER COMPLETED DATE/TIME: 04/26/2018 3:50 pm REASON FOR STUDY: pulmomnary embolism COMPARISON: None. TECHNIQUE: Dynamic and static piper scale and color images acquired of both lower extremity venous sy stems. Selected spectral images acquired with additional compression and augmentation maneuvers. Imag es stored on PACS. LIMITATIONS: None. FINDINGS: RIGHT LEG COMMON FEMORAL AND FEMORAL: Normal phasicity, compression and augmentation. No visualized echogenic m aterial on piper scale. No defects on color images. POPLITEAL: Normal compression and augmentation. No visualized echogenic material on piper scale. No de fects on color images. CALF VESSELS: Normal compression and augmentation. No visualized echogenic material on piper scale. No defects on color image. GSV AND SSV: Normal compression. No visualized echogenic material on piper scale. No defects on color images. ANY DEEP VENOUS INSUFFICIENCY: No reflux on Valsalva ANY EVIDENCE OF POPLITEAL CYST: No. OTHER: No other significant finding. LEFT LEG COMMON FEMORAL AND FEMORAL: Normal phasicity, compression and augmentation. No visualized echogenic m aterial on piper scale. No defects on color images. POPLITEAL: Normal compression and augmentation. No visualized echogenic material on piper scale. No de fects on color images. CALF VESSELS: Normal compression and augmentation. No visualized echogenic material on piper scale. No defects on color images. GSV AND SSV: Normal compression. No visualized echogenic material on piper scale. No defects on color images. ANY DEEP VENOUS INSUFFICIENCY: No reflux on Valsalva ANY EVIDENCE POPLITEAL CYST: No. OTHER: No other significant finding. IMPRESSION: NO EVIDENCE DVT OR SVT IN EITHER LEG. TECHNICAL DOCUMENTATION: JOB ID: [id number] [employer]- All Rights Reserved Reading location - IP/workstation name: [email or web address]
[2018-04-26] MEDS: HYDROMORPHONE HCL INJ/PF 2 MG/ML AMPULE IV PRN ×2 (16:13→22:04)
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
[2018-04-26 18:02] LABS: APPEARANCE,URINE CLOUDY; BILIRUBIN,URINE NEGATIVE (NEGATIVE); COLOR,URINE YELLOW; GLUCOSE, URINE NEGATIVE (NEGATIVE); KETONES,URINE NEGATIVE (NEGATIVE); LEUKOCYTE ESTERASE,URINE LARGE (NEGATIVE); NITRITE,URINE NEGATIVE (NEGATIVE); PROTEIN,URINE 30 mg/dL (NEGATIVE); UROBILINOGEN,URINE NEGATIVE mg/dL (<2.0)
[2018-04-26 18:37] LABS: CREATINE KINASE MB < 0.22 ng/mL (<4.55); TROPONIN I < 0.012 ng/mL
--- NOTE | 2018-04-26 21:04 | XCELERA REPORT ---
[address] [address] Transthoracic Echocardiogram Report Name: NINA HURTADO Age: 27 yrs Gender: Female : 1990 Patient Status: Inpatient Patient Location: ICU^610^A Study Date: 04/26/2018 03:14 PM Height: 61 in Weight: 205 lb BSA: 1.9 m2 Reason For Study: pulmonary embolism Ordering Physician: RENY MALONE Performed By: Ammy Rogres Interpretation Summary No echo evidence of significant or massive pulm. embolism. Essentially normal ECHO. MMode/2D Measurements & Calculations RVDd: 2.6 cm LVIDd: 4.7 cm FS: 37.0 % Ao root diam: 2.4 cm IVSd: 0.91 cm LVIDs: 2.9 cm EDV(Teich): 100.8 ml LVPWd: 0.86 cm ESV(Teich): 33.3 ml Ao root area: 4.5 cm2 LA dimension: 3.3 cm EF(Teich): 66.9 % Doppler Measurements & Calculations MV E max vito: MV P1/2t max vito: Ao V2 max: LV V1 max P.3 cm/sec 91.8 cm/sec 135.7 cm/sec 4.4 mmHg MV A max vito: MV P1/2t: 56.7 msec Ao max PG: LV V1 max: 68.1 cm/sec MVA(P1/2t): 3.9 cm2 7.4 mmHg 104.6 cm/sec MV E/A: 1.3 MV dec slope: 474.1 cm/sec2 MV dec time: 0.19 sec PA V2 max: MV P1/2t-pr_phl: 95.8 cm/sec 56.7 msec PA max P.7 mmHg Left Ventricle The left ventricle is grossly normal size. There is normal left ventricular wall thickness. The left ventricular ejection fraction is normal. LV EF is 60- 65%. Doppler measurements suggest normal left ventricular diastolic function. No regional wall motion abnormalities noted. There is no thrombus. Right Ventricle The right ventricle is grossly normal size. The right ventricular systolic function is normal. RV contractility is normal and pattern not suggestive of Pulm embolism. Atria The right atrium is normal. No embolus in transit seen. The left atrial size is normal. LA M-mode is 39 mm, not dilated. The interatrial septum is intact with no evidence for an atrial septal defect. Mitral Valve The mitral valve is normal in structure and function. There is no mitral annular calcification. There is no evidence of mitral valve prolapse. There is no mitral valve stenosis. There is no mitral regurgitation noted. Aortic Valve The aortic valve is trileaflet. The aortic valve opens well. There is no aortic valvular vegetation. There is no aortic valve stenosis. No aortic regurgitation is present. Tricuspid Valve The tricuspid valve is not well visualized, but is grossly normal. There is no tricuspid valve prolapse. No tricuspid regurgitation. Pulmonic Valve The pulmonic valve is not well visualized. There is no pulmonic valvular stenosis. PA flow acceleration is 100ms and normal. Great Vessels The aortic root is normal size. Effusions Minimal pericardial effusion. I WMSI = 1.00 % Normal = 100 Segments Size X - Cannot 2 - 4 - 1-2 small Interpret 1 - Normal Hypokinetic 3 - AkineticDyskinetic 3-5 moderate 5 - 6-14 large Aneurysmal 15-16 diffuse : RENY MALONE > Pawel Alvarado
[2018-04-26] MEDS ORDERED: (PENDING PHARMACY ID) (Aripiprazole [Abilify 15 Mg Tablet] 15 MG) PO SCH (22:00)
[2018-04-26] MEDS ORDERED: (PENDING PHARMACY ID) (Clonidine Hcl [Catapres 0.3 Mg Tablet] 0.3 MG) PO SCH (22:00)
[2018-04-26] MEDS ORDERED: WARFARIN SODIUM 5 MG TABLET PO SCH (22:00)
[2018-04-26] MEDS ORDERED: (PENDING PHARMACY ID) (Hydroxyzine Hcl [Atarax 25 Mg Tablet] 25 MG) PO SCH (22:00)
[2018-04-26] MEDS: CLONIDINE HCL 0.1 MG TABLET PO SCH (22:09)
[2018-04-26] MEDS: ARIPIPRAZOLE 5 MG TABLET PO SCH (22:09)
[2018-04-26] MEDS: MIRTAZAPINE 15 MG TABLET PO SCH (22:10)
[2018-04-26] MEDS: FAMOTIDINE INJ/PF 20 MG/2 ML SDV IV SCH (22:11)
[2018-04-26] MEDS: ENOXAPARIN SODIUM INJ 100 MG/1 ML DISP.SYRIN SUBCUT SCH (22:11)
[2018-04-26] MEDS ORDERED: HYDROXYZINE HCL 10 MG TABLET ONE ×2 (22:33→23:25)
[2018-04-26] MEDS: HYDROXYZINE HCL 10 MG TABLET PO SCH (23:30)
[2018-04-27 02:01] LABS: CREATINE KINASE MB < 0.22 ng/mL (<4.55); TROPONIN I < 0.012 ng/mL
[2018-04-27] MEDS: HYDROMORPHONE HCL INJ/PF 2 MG/ML AMPULE IV PRN ×4 (04:22→23:13)
[2018-04-27 06:53] LABS: PROTHROMBIN TIME 13.7 SEC (11.4-15.4)
[2018-04-27 07:01] LABS: ABSOLUTE EOSINOPHILS # (AUTO) 0.1 10^3/uL (0.0-0.6); ABSOLUTE LYMPHOCYTES (AUTO) 2.2 10^3/uL (0.5-4.7); ABSOLUTE MONOCYTES (AUTO) 0.5 10^3/uL (0.1-1.4); ABSOLUTE NEUT (AUTO) 1.9 10^3/uL (1.7-8.2); BASOPHILS % (AUTO) 0.4 % (0-2); EOSINOPHILS % (AUTO) 2.6 % (0-6); HEMATOCRIT 35.5 % (36.0-47.0); HEMOGLOBIN 12.2 g/dL (12.0-15.5); LYMPHOCYTES % (AUTO) 45.3 % (13-45); MEAN CORPUSCULAR HEMOGLOBIN 27.9 pg (27.0-33.4); MEAN CORPUSCULAR HGB CONC 34.4 g/dL (32.0-36.0); MEAN CORPUSCULAR VOLUME 81 fl (80-97); MONOCYTES % (AUTO) 11.5 % (3-13); PLATELET COUNT 193 10^3/uL (150-450); RED BLOOD COUNT 4.37 10^6/uL (3.72-5.28); RED CELL DISTRIBUTION WIDTH 14.5 % (11.5-14.0); SEGMENTED NEUTROPHILS % (AUTO) 40.2 % (42-78); TOTAL CELLS COUNTED % (AUTO) 100 %; WHITE BLOOD COUNT 4.8 10^3/uL (4.0-10.5)
[2018-04-27 07:15] LABS: ALANINE AMINOTRANSFERASE 16 U/L (9-52); ALBUMIN 3.8 g/dL (3.5-5.0); ALKALINE PHOSPHATASE 95 U/L (38-126); ANION GAP 8 (5-19); ASPARTATE AMINO TRANSFERASE 15 U/L (14-36); BILIRUBIN,DIRECT 0.2 mg/dL (0.0-0.4); BILIRUBIN,TOTAL 0.7 mg/dL (0.2-1.3); BLOOD UREA NITROGEN 10 mg/dL (7-20); CALCIUM 9.2 mg/dL (8.4-10.2); CARBON DIOXIDE 22 mmol/L (22-30); CHLORIDE 109 mmol/L (98-107); CHOLESTEROL 233.61 mg/dL (0-200); GLUCOSE 105 mg/dL (75-110); POTASSIUM 4.2 mmol/L (3.6-5.0); SODIUM 138.7 mmol/L (137-145); TOTAL PROTEIN 6.7 g/dL (6.3-8.2); TRIGLYCERIDES 204 mg/dL (<150)
[2018-04-27 07:26] LABS: DIRECT LDL 182 mg/dL (<100)
[2018-04-27 07:42] LABS: VLDL CHOLESTEROL 40.8 mg/dL (10-31)
--- NOTE | 2018-04-27 08:32 | PDOC PROGRESS REPORT ---
Subjective Progress Note for:: 04/28/18 Subjective:: Patient is comfortably in the bed she is less anxious than yesterday. Still complaining of occasional left-sided chest pain on deep breaths. She is getting Dilaudid on a regular basis. No acute events in the last 24 hours. Reason For Visit: PULMONARY EMBOLISM Physical Exam Vital Signs: Temp Pulse Resp BP Pulse Ox 98.1 F 87 17 83/45 L 97 04/27/18 05:27 04/27/18 03:09 04/27/18 06:00 04/27/18 05:56 04/27/18 06:00 Intake & Output 04/26/18 04/27/18 04/28/18 06:59 06:59 06:59 Output Total 300 Balance -300 Weight 96.1 kg General appearance: PRESENT: mild distress Head exam: PRESENT: atraumatic Eye exam: PRESENT: PERRLA Mouth exam: PRESENT: moist Neck exam: ABSENT: carotid bruit, JVD, lymphadenopathy, thyromegaly Respiratory exam: PRESENT: clear to auscultation john. ABSENT: rales, rhonchi, wheezes Cardiovascular exam: PRESENT: tachycardia GI/Abdominal exam: PRESENT: normal bowel sounds, soft. ABSENT: distended, guarding, mass, organolmegaly, rebound, tenderness Neurological exam: PRESENT: alert, awake, oriented to person, oriented to place , oriented to time, oriented to situation, CN II-XII grossly intact. ABSENT: motor sensory deficit Psychiatric exam: PRESENT: appropriate affect, normal mood. ABSENT: homicidal ideation, suicidal ideation Results Laboratory Results: 04/27/18 06:13 04/27/18 06:13 04/26/18 04/26/18 04/27/18 15:30 17:30 06:13 WBC 4.8 RBC 4.37 Hgb 12.2 Hct 35.5 L MCV 81 MCH 27.9 MCHC 34.4 RDW 14.5 H Plt Count 193 Seg Neutrophils % 40.2 L Lymphocytes % 45.3 H Monocytes % 11.5 Eosinophils % 2.6 Basophils % 0.4 Absolute Neutrophils 1.9 Absolute Lymphocytes 2.2 Absolute Monocytes 0.5 Absolute Eosinophils 0.1 Absolute Basophils 0.0 Carbonic Acid 0.87 L HCO3/H2CO3 Ratio 21:1 ABG pH 7.44 ABG pCO2 29.0 L ABG pO2 97.0 ABG HCO3 19.0 L ABG O2 Saturation 97.7 ABG Base Excess -4.0 FiO2 2LNC Sodium Potassium Chloride Carbon Dioxide Anion Gap BUN Creatinine Est GFR ( Amer) Est GFR (Non-Af Amer) Glucose Calcium Magnesium Total Bilirubin AST ALT Alkaline Phosphatase Total Protein Albumin Triglycerides Cholesterol LDL Cholesterol Direct VLDL Cholesterol HDL Cholesterol TSH Urine Color YELLOW Urine Appearance CLOUDY Urine pH 5.0 Ur Specific [place] 1.060 Urine Protein 30 H Urine Glucose (UA) NEGATIVE Urine Ketones NEGATIVE Urine Blood NEGATIVE Urine Nitrite NEGATIVE Ur Leukocyte Esterase LARGE H Urine WBC (Auto) 52 Urine RBC (Auto) 7 04/27/18 04/27/18 06:13 06:13 WBC RBC Hgb Hct MCV MCH MCHC RDW Plt Count Seg Neutrophils % Lymphocytes % Monocytes % Eosinophils % Basophils % Absolute Neutrophils Absolute Lymphocytes Absolute Monocytes Absolute Eosinophils Absolute Basophils Carbonic Acid HCO3/H2CO3 Ratio ABG pH ABG pCO2 ABG pO2 ABG HCO3 ABG O2 Saturation ABG Base Excess FiO2 Sodium 138.7 Potassium 4.2 Chloride 109 H Carbon Dioxide 22 Anion Gap 8 BUN 10 Creatinine 0.82 Est GFR ( Amer) > 60 Est GFR (Non-Af Amer) > 60 Glucose 105 Calcium 9.2 Magnesium 2.2 Total Bilirubin 0.7 AST 15 ALT 16 Alkaline Phosphatase 95 Total Protein 6.7 Albumin 3.8 Triglycerides 204 H Cholesterol 233.61 H LDL Cholesterol Direct 182 H VLDL Cholesterol 40.8 H HDL Cholesterol 26 L TSH 2.23 Urine Color Urine Appearance Urine pH Ur Specific [place] Urine Protein Urine Glucose (UA) Urine Ketones Urine Blood Urine Nitrite Ur Leukocyte Esterase Urine WBC (Auto) Urine RBC (Auto) 04/26/18 04/26/18 04/27/18 13:51 17:26 00:59 CK-MB (CK-2) < 0.22 < 0.22 < 0.22 Troponin I < 0.012 < 0.012 < 0.012 NT-Pro-B Natriuret Pep 04/27/18 06:13 CK-MB (CK-2) Troponin I NT-Pro-B Natriuret Pep 59 Impressions: Chest X-Ray 04/26/18 08:58 IMPRESSION: NO ACUTE RADIOGRAPHIC FINDING IN THE CHEST. Chest/Abdomen CTA 04/26/18 10:13 IMPRESSION: Acute pulmonary embolus to the left lower lobe pulmonary artery. Venous Doppler Study 04/26/18 13:23 IMPRESSION: NO EVIDENCE DVT OR SVT IN EITHER LEG. Assessment & Plan - Diagnosis (1) Acute pulmonary embolism Qualifiers: Pulmonary embolism type: unspecified Acute cor pulmonale presence: without acute cor pulmonale Qualified Code(s): I26.99 - Other pulmonary embolism without acute cor pulmonale Is this a current diagnosis for this admission?: Yes Plan: 04/26/2018 27-year-old female came to the emergency room with severe chest pain left-sided chest pain and severe shortness of breath since yesterday. The CT of the chest shows acute pulmonary embolism in the left lower lobe artery. The plan is to admit her as inpatient in ICU. Going to be on oxygen 2 L nasal cannula. Echocardiogram was requested. Lovenox 1 mg/kg subcu every 12 hours was started. She was also placed on Coumadin 5 mg p.o. nightly. We are going to check PT/INR on regular basis. Patient's edema d-dimer is 3.4. BNP is also low. Which was normal sinus rhythm. She is going to be on a telemetry monitoring. Ultrasound of the lower extremities was requested. To rule out DVT test for protein C and protein S was requested. I am going to put her on morphine 2 mg IV every 4 as needed for chest pain. Also going to get DuoNeb nebulizations every 6 as needed for shortness of breath. Hematology consult and pulmonary consult was requested. In my opinion she has several risk factors like oral contraceptive use, obesity, recent history of cholecystectomy. Smoking is also a risk factor . 04/27/[id number]-kqry-old female admitted for pulmonary embolism she came in with severe shortness of breath and left-sided pleuritic chest pain. CT of the chest shows left lower lobe PE involving the left lower lobe pulmonary artery. She was started on Lovenox 1 mg/kg every 12 hours and Coumadin 5 mg p.o. nightly. INR today is 1.0. Hematology talked to the patient and put a note that they recommended Xarelto or Eliquis instead of Coumadin. I started on Xarelto 10 mg p.o. today. We are going to go ahead and give the Lovenox dose this morning and stop the evening dose of Lovenox. Antiphospholipid antibody results are pending. It is getting pain medications [id number] she is on oxygen 2 L nasal cannula she is using BiPAP at night, echocardiogram was requested Dr. FRANCISCO is going to read the echocardiogram. (2) Obesity (BMI 30-39.9) Is this a current diagnosis for this admission?: Yes Plan: 04/26/2018-patient's BMI is more than 35. It may be risk factor for pulmonary embolism. Diet and exercise weight loss was advised. 04/27/2018 patient's BMI is 40 it is a risk factor for pulmonary embolism diet and exercise weight loss was advised. (3) Smoker Is this a current diagnosis for this admission?: Yes Plan: 04/26/2018 patient is a chronic smoker she is on Chantix at home smokes 3-4 cigarettes/day I am going to put her on nicotine patch. Smoking cessation counseling was provided for more than 10 minutes. 04/27/2018 patient has history of chronic smoking she was started on nicotine patch. (4) Gall bladder disease Is this a current diagnosis for this admission?: Yes Plan: 04/26/2018 patient has history of gallbladder disease status post cholecystectomy 2 weeks ago. It may be a risk factor for pulmonary embolism. 04/27/2018 patient has recently cholecystectomy done 2 weeks ago. No complaints of abdominal pain. (5) Sleep apnea Qualifiers: Sleep apnea type: obstructive Qualified Code(s): G47.33 - Obstructive sleep apnea (adult) (pediatric) Is this a current diagnosis for this admission?: Yes Plan: 04/26/2018 patient has history of obstructive sleep apnea. She is uses BiPAP at night. Be going to resume the BiPAP [facility] here at night. 04/27/2018 patient has history of obstructive sleep apnea uses BiPAP at night. We will plan to continue the same management in the hospital. - Time Time Spent with patient: 15-24 minutes Smoking Cessation Education: over 10 minutes Medications reviewed and adjusted accordingly: Yes Anticipated discharge: Home
[2018-04-27] MEDS: NICOTINE 21 MG/24 HR PATCH.TD24 TD PRN (09:39)
[2018-04-27] MEDS: ENOXAPARIN SODIUM INJ 100 MG/1 ML DISP.SYRIN SUBCUT SCH ×2 (09:39→23:15)
[2018-04-27] MEDS: ALPRAZOLAM 0.5 MG TABLET PO PRN (09:40)
[2018-04-27] MEDS: FAMOTIDINE INJ/PF 20 MG/2 ML SDV IV SCH ×2 (09:40→23:16)
[2018-04-27] MEDS: CYCLOSPORINE 0.05% OPH EMULSIO 0.4 ML DROPERETTE OU SCH ×2 (09:40→23:17)
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
[2018-04-27] MEDS ORDERED: RIVAROXABAN 10 MG TABLET PO SCH ×2 (17:00→18:00)
[2018-04-27] MEDS: RIVAROXABAN 15 MG TABLET PO SCH (17:18)
[2018-04-27] MEDS: ARIPIPRAZOLE 5 MG TABLET PO SCH (23:14)
[2018-04-27] MEDS: HYDROXYZINE HCL 10 MG TABLET PO SCH (23:15)
[2018-04-27] MEDS: CLONIDINE HCL 0.1 MG TABLET PO SCH (23:15)
[2018-04-27] MEDS: MIRTAZAPINE 15 MG TABLET PO SCH (23:16)
[2018-04-28] MEDS: DIPHENHYDRAMINE HCL 50 MG CAPSULE PO PRN ×2 (01:42→09:36)
[2018-04-28] MEDS: HYDROMORPHONE HCL INJ/PF 2 MG/ML AMPULE IV PRN ×3 (04:58→22:44)
[2018-04-28 06:48] LABS: INTERNATIONAL RATION (INR) 1.57; PROTHROMBIN TIME 19.5 SEC (11.4-15.4)
[2018-04-28] MEDS: FAMOTIDINE INJ/PF 20 MG/2 ML SDV IV SCH ×2 (09:31→22:44)
[2018-04-28] MEDS: NICOTINE 21 MG/24 HR PATCH.TD24 TD PRN (09:31)
[2018-04-28] MEDS: ALPRAZOLAM 0.5 MG TABLET PO PRN (09:31)
[2018-04-28] MEDS: CYCLOSPORINE 0.05% OPH EMULSIO 0.4 ML DROPERETTE OU SCH ×2 (09:32→22:49)
[2018-04-28] MEDS: RIVAROXABAN 15 MG TABLET PO SCH ×2 (09:33→18:58)
--- NOTE | 2018-04-28 10:58 | PDOC PROGRESS REPORT ---
Subjective Progress Note for:: 04/28/18 Subjective:: Patient is comfortably in the bed she is less anxious than yesterday. Still complaining of occasional left-sided chest pain on deep breaths. She is getting Dilaudid on a regular basis. No acute events in the last 24 hours. Patient is in the bed complains of tightness in the left side of her chest. She is getting pain medications on a regular basis. She has left-sided PE. Per the hematology recommendations she is on Xarelto 15 mg p.o. twice daily. She is off the Lovenox. Acute events in the last 24 hours. Blood pressures are running borderline low patient told me that is her baseline. Reason For Visit: PULMONARY EMBOLISM Physical Exam Vital Signs: Temp Pulse Resp BP Pulse Ox 98.7 F 81 26 H 92/57 L 97 04/28/18 10:00 04/28/18 10:00 04/28/18 10:00 04/28/18 10:00 04/28/18 10:00 Intake & Output 04/27/18 04/28/18 04/29/18 06:59 06:59 06:59 Intake Total 1366 Output Total 300 1900 Balance -300 -534 Weight 96.1 kg 97 kg General appearance: PRESENT: mild distress Head exam: PRESENT: atraumatic Eye exam: PRESENT: PERRLA Mouth exam: PRESENT: moist Neck exam: ABSENT: carotid bruit, JVD, lymphadenopathy, thyromegaly Respiratory exam: PRESENT: clear to auscultation john. ABSENT: rales, rhonchi, wheezes Cardiovascular exam: PRESENT: tachycardia GI/Abdominal exam: PRESENT: normal bowel sounds, soft. ABSENT: distended, guarding, mass, organolmegaly, rebound, tenderness Extremities exam: PRESENT: full ROM. ABSENT: calf tenderness, clubbing, pedal edema Neurological exam: PRESENT: alert, awake, oriented to person, oriented to place , oriented to time, oriented to situation, CN II-XII grossly intact. ABSENT: motor sensory deficit Psychiatric exam: PRESENT: appropriate affect, normal mood. ABSENT: homicidal ideation, suicidal ideation Results Laboratory Results: 04/27/18 06:13 04/27/18 06:13 04/26/18 04/26/18 04/27/18 13:51 17:26 00:59 CK-MB (CK-2) < 0.22 < 0.22 < 0.22 Troponin I < 0.012 < 0.012 < 0.012 NT-Pro-B Natriuret Pep 04/27/18 06:13 CK-MB (CK-2) Troponin I NT-Pro-B Natriuret Pep 59 Impressions: Chest X-Ray 04/26/18 08:58 IMPRESSION: NO ACUTE RADIOGRAPHIC FINDING IN THE CHEST. Chest/Abdomen CTA 04/26/18 10:13 IMPRESSION: Acute pulmonary embolus to the left lower lobe pulmonary artery. Venous Doppler Study 04/26/18 13:23 IMPRESSION: NO EVIDENCE DVT OR SVT IN EITHER LEG. Assessment & Plan - Diagnosis (1) Acute pulmonary embolism Qualifiers: Pulmonary embolism type: unspecified Acute cor pulmonale presence: without acute cor pulmonale Qualified Code(s): I26.99 - Other pulmonary embolism without acute cor pulmonale Is this a current diagnosis for this admission?: Yes Plan: 04/26/2018 27-year-old female came to the emergency room with severe chest pain left-sided chest pain and severe shortness of breath since yesterday. The CT of the chest shows acute pulmonary embolism in the left lower lobe artery. The plan is to admit her as inpatient in ICU. Going to be on oxygen 2 L nasal cannula. Echocardiogram was requested. Lovenox 1 mg/kg subcu every 12 hours was started. She was also placed on Coumadin 5 mg p.o. nightly. We are going to check PT/INR on regular basis. Patient's edema d-dimer is 3.4. BNP is also low. Which was normal sinus rhythm. She is going to be on a telemetry monitoring. Ultrasound of the lower extremities was requested. To rule out DVT test for protein C and protein S was requested. I am going to put her on morphine 2 mg IV every 4 as needed for chest pain. Also going to get DuoNeb nebulizations every 6 as needed for shortness of breath. Hematology consult and pulmonary consult was requested. In my opinion she has several risk factors like oral contraceptive use, obesity, recent history of cholecystectomy. Smoking is also a risk factor . 04/[id number]-zsnv-old female admitted for pulmonary embolism she came in with severe shortness of breath and left-sided pleuritic chest pain. CT of the chest shows left lower lobe PE involving the left lower lobe pulmonary artery. She was started on Lovenox 1 mg/kg every 12 hours and Coumadin 5 mg p.o. nightly. INR today is 1.0. Hematology talked to the patient and put a note that they recommended Xarelto or Eliquis instead of Coumadin. I started on Xarelto 10 mg p.o. today. We are going to go ahead and give the Lovenox dose this morning and stop the evening dose of Lovenox. Antiphospholipid antibody results are pending. It is getting pain medications [id number] she is on oxygen 2 L nasal cannula she is using BiPAP at night, echocardiogram was requested Dr. FRANCISCO is going to read the echocardiogram. 04/28/2018-patient was started on Xarelto 15 mg p.o. twice daily yesterday. Lovenox was discontinued. Patient is complete 22 complaining of left-sided chest tightness. She is getting the pain medications on a regular basis. Pulse ox is stable. Pulse ox is 97% on 2 L. I think patient is afraid to take a deep breaths and would ask for flutter valve to prevent atelecstasis . It is downgraded to telemetry. Order was placed. (2) Obesity (BMI 30-39.9) Is this a current diagnosis for this admission?: Yes Plan: 04/26/2018-patient's BMI is more than 35. It may be risk factor for pulmonary embolism. Diet and exercise weight loss was advised. 04/27/2018 patient's BMI is 40 it is a risk factor for pulmonary embolism diet and exercise weight loss was advised. 04/28/2018 patient is BMI is 40 diet and exercise weight loss advised. Dietary consult was requested. (3) Smoker Is this a current diagnosis for this admission?: Yes Plan: 04/26/2018 patient is a chronic smoker she is on Chantix at home smokes 3-4 cigarettes/day I am going to put her on nicotine patch. Smoking cessation counseling was provided for more than 10 minutes. 04/27/2018 patient has history of chronic smoking she was started on nicotine patch. 04/28/2018 patient is on nicotine patch. (4) Gall bladder disease Is this a current diagnosis for this admission?: Yes (5) Sleep apnea Qualifiers: Sleep apnea type: obstructive Qualified Code(s): G47.33 - Obstructive sleep apnea (adult) (pediatric) Is this a current diagnosis for this admission?: Yes Plan: 04/26/2018 patient has history of obstructive sleep apnea. She is uses BiPAP at night. Be going to resume the [facility] here at night. 04/27/2018 patient has history of obstructive sleep apnea uses BiPAP at night. We will plan to continue the same management in the hospital. 04/28/2018 patient has history of obstructive sleep apnea on BiPAP at night. Present management. - Time Time Spent with patient: 15-24 minutes Smoking Cessation Education: over 10 minutes Medications reviewed and adjusted accordingly: Yes Anticipated discharge: Home
--- NOTE | 2018-04-28 11:59 | PDOC PROGRESS REPORT ---
Subjective Progress Note for:: 04/28/18 Subjective:: better Reason For Visit: PULMONARY EMBOLISM Physical Exam Vital Signs: Temp Pulse Resp BP Pulse Ox 98.7 F 81 26 H 92/57 L 97 04/28/18 10:00 04/28/18 10:00 04/28/18 10:00 04/28/18 10:00 04/28/18 10:00 Intake & Output 04/27/18 04/28/18 04/29/18 06:59 06:59 06:59 Intake Total 1366 Output Total 300 1900 400 Balance -300 -534 -400 Weight 96.1 kg 97 kg 97 kg General appearance: PRESENT: no acute distress, cooperative, disheveled, morbidly obese Head exam: PRESENT: atraumatic, normocephalic Eye exam: PRESENT: EOMI. ABSENT: nystagmus, scleral icterus Mouth exam: PRESENT: dry mucosa, neck supple, tongue midline Neck exam: ABSENT: carotid bruit, JVD, lymphadenopathy, thyromegaly, tracheal deviation, tracheostomy Respiratory exam: PRESENT: decreased breath sounds, prolonged expiratory phas, rales, rhonchi, unlabored. ABSENT: retraction, stridor, symmetrical, tachypnea , wheezes Cardiovascular exam: PRESENT: RRR, +S1, +S2. ABSENT: tachycardia Pulses: PRESENT: normal radial pulses GI/Abdominal exam: PRESENT: soft. ABSENT: tenderness Extremities exam: PRESENT: pedal edema. ABSENT: calf tenderness, clubbing, joint swelling Musculoskeletal exam: ABSENT: deformity, dislocation Neurological exam: PRESENT: alert, awake Psychiatric exam: PRESENT: appropriate affect Skin exam: PRESENT: dry, warm Results Laboratory Results: 04/27/18 06:13 04/27/18 06:13 04/26/18 04/26/18 04/27/18 13:51 17:26 00:59 CK-MB (CK-2) < 0.22 < 0.22 < 0.22 Troponin I < 0.012 < 0.012 < 0.012 NT-Pro-B Natriuret Pep 04/27/18 06:13 CK-MB (CK-2) Troponin I NT-Pro-B Natriuret Pep 59 Impressions: Chest X-Ray 04/26/18 08:58 IMPRESSION: NO ACUTE RADIOGRAPHIC FINDING IN THE CHEST. Chest/Abdomen CTA 04/26/18 10:13 IMPRESSION: Acute pulmonary embolus to the left lower lobe pulmonary artery. Venous Doppler Study 04/26/18 13:23 IMPRESSION: NO EVIDENCE DVT OR SVT IN EITHER LEG. Assessment & Plan - Diagnosis (1) Acute pulmonary embolism Qualifiers: Pulmonary embolism type: unspecified Acute cor pulmonale presence: without acute cor pulmonale Qualified Code(s): I26.99 - Other pulmonary embolism without acute cor pulmonale Is this a current diagnosis for this admission?: Yes Plan: agree with regimin and add IV Motrin for 24 hours to help decrease pleuritic chest pain (2) Obesity (BMI 30-39.9) Is this a current diagnosis for this admission?: Yes Plan: Dietary consult, consider bariatric surgery (3) Sleep apnea Qualifiers: Sleep apnea type: obstructive Qualified Code(s): G47.33 - Obstructive sleep apnea (adult) (pediatric) Is this a current diagnosis for this admission?: Yes Plan: start bipap (4) Smoker Is this a current diagnosis for this admission?: Yes Plan: transdermal nicotine - Time Total Critical Time (Minutes): 40
--- NOTE | 2018-04-28 15:56 | RADIOLOGY REPORT (SQ) ---
EXAM DESCRIPTION: CHEST 2 VIEWS COMPLETED DATE/TIME: 04/28/2018 3:40 pm REASON FOR STUDY: chest pain COMPARISON: Chest x-ray 04/26/2018. EXAM PARAMETERS: NUMBER OF VIEWS: two views TECHNIQUE: Digital Frontal and Lateral radiographic views of the chest acquired. RADIATION DOSE: NA LIMITATIONS: none FINDINGS: LUNGS AND PLEURA: Subsegmental atelectasis at the left lower lobe. No pneumothorax or ple ural effusion. MEDIASTINUM AND HILAR STRUCTURES: No masses or contour abnormalities. HEART AND VASCULAR STRUCTURES: Heart normal size. No evidence for failure. BONES: No acute findings. HARDWARE: None in the chest. IMPRESSION: Subsegmental atelectasis at the left lower lobe. TECHNICAL DOCUMENTATION: JOB ID: [id number] [employer]- All Rights Reserved Reading location - IP/workstation name: [email or web address]
[2018-04-28] MEDS ORDERED: HYDROMORPHONE HCL INJ/PF 2 MG/ML AMPULE IV ONE (16:00)
[2018-04-28] MEDS: ONDANSETRON HCL INJ/PF 4 MG/2 ML SDV IV PRN (20:57)
[2018-04-28] MEDS: ARIPIPRAZOLE 5 MG TABLET PO SCH (22:44)
[2018-04-28] MEDS: CLONIDINE HCL 0.1 MG TABLET PO SCH (22:44)
[2018-04-28] MEDS: MIRTAZAPINE 15 MG TABLET PO SCH (22:44)
[2018-04-29] MEDS: HYDROMORPHONE HCL INJ/PF 2 MG/ML AMPULE IV PRN ×3 (04:43→17:54)
[2018-04-29 05:22] LABS: HEMATOCRIT 35.5 % (36.0-47.0); HEMOGLOBIN 11.9 g/dL (12.0-15.5); MEAN CORPUSCULAR HEMOGLOBIN 27.5 pg (27.0-33.4); MEAN CORPUSCULAR HGB CONC 33.5 g/dL (32.0-36.0); MEAN CORPUSCULAR VOLUME 82 fl (80-97); PLATELET COUNT 191 10^3/uL (150-450); RED BLOOD COUNT 4.33 10^6/uL (3.72-5.28); RED CELL DISTRIBUTION WIDTH 14.2 % (11.5-14.0); WHITE BLOOD COUNT 4.9 10^3/uL (4.0-10.5)
[2018-04-29] MEDS: ONDANSETRON HCL INJ/PF 4 MG/2 ML SDV IV PRN (08:19)
--- NOTE | 2018-04-29 08:43 | PDOC PROGRESS REPORT ---
Subjective Progress Note for:: 04/29/18 Subjective:: Patient states that she is still having some right sided chest pain. She has also had some nausea last night and this morning. She has not been up to walk. ROS: pleuritic chest pain, nausea, no bleeding or bruising. Reason For Visit: PULMONARY EMBOLISM Physical Exam Vital Signs: Temp Pulse Resp BP Pulse Ox 98.2 F 80 20 104/63 94 04/29/18 08:05 04/29/18 08:05 04/29/18 08:05 04/29/18 08:05 04/29/18 08:05 Intake & Output 04/28/18 04/29/18 04/30/18 06:59 06:59 06:59 Intake Total 1366 590 Output Total 1900 400 Balance -534 190 Weight 97 kg 96.8 kg General appearance: PRESENT: no acute distress, obese Head exam: PRESENT: normocephalic Respiratory exam: PRESENT: clear to auscultation john, unlabored Cardiovascular exam: PRESENT: RRR GI/Abdominal exam: PRESENT: soft. ABSENT: tenderness Extremities exam: PRESENT: +1 edema Neurological exam: PRESENT: alert, awake Psychiatric exam: PRESENT: appropriate affect Skin exam: PRESENT: normal color Results Laboratory Results: 04/29/18 04:57 04/27/18 06:13 04/29/18 04:57 WBC 4.9 RBC 4.33 Hgb 11.9 L Hct 35.5 L MCV 82 MCH 27.5 MCHC 33.5 RDW 14.2 H Plt Count 191 04/26/18 04/26/18 04/27/18 13:51 17:26 00:59 CK-MB (CK-2) < 0.22 < 0.22 < 0.22 Troponin I < 0.012 < 0.012 < 0.012 NT-Pro-B Natriuret Pep 04/27/18 06:13 CK-MB (CK-2) Troponin I NT-Pro-B Natriuret Pep 59 Impressions: Chest/Abdomen CTA 04/26/18 10:13 IMPRESSION: Acute pulmonary embolus to the left lower lobe pulmonary artery. Venous Doppler Study 04/26/18 13:23 IMPRESSION: NO EVIDENCE DVT OR SVT IN EITHER LEG. Chest X-Ray 04/28/18 00:00 IMPRESSION: Subsegmental atelectasis at the left lower lobe. Assessment & Plan - Diagnosis (1) Acute pulmonary embolism Qualifiers: Pulmonary embolism type: unspecified Acute cor pulmonale presence: without acute cor pulmonale Qualified Code(s): I26.99 - Other pulmonary embolism without acute cor pulmonale Is this a current diagnosis for this admission?: Yes Plan: She was started on Xarelto 15 mg po BID on 04/27/2018. She will change to 20 mg daily on 05/18/2018. I have explained that her pleuritic pain may last several more weeks, but should continue to slowly improve. (2) Smoker Is this a current diagnosis for this admission?: Yes - Plan Summary Plan Summary: Her blood counts continue to look good. I will continue to follow her. Please call me with any concerns.
[2018-04-29 09:53] LABS: ARTERIAL BLOOD BASE EXCESS 0.9 mmol/L; ARTERIAL BLOOD H2CO3 1.14 mmol/L (1.05-1.35); ARTERIAL BLOOD O2 SATURATION 94.5 % (94-98); ARTERIAL BLOOD PH 7.44 (7.35-7.45); ARTERIAL BLOOD PO2 69.2 mmHg (80-100); ARTERIAL BLOOD TOTAL CO2 26.2 mmol/L (21-25)
[2018-04-29 09:54] LABS: ARTERIAL BLOOD FIO2 ROOM AIR
[2018-04-29] MEDS: FAMOTIDINE INJ/PF 20 MG/2 ML SDV IV SCH ×2 (10:28→21:06)
[2018-04-29] MEDS: CYCLOSPORINE 0.05% OPH EMULSIO 0.4 ML DROPERETTE OU SCH ×2 (10:28→21:06)
[2018-04-29] MEDS: RIVAROXABAN 15 MG TABLET PO SCH ×2 (10:28→17:54)
[2018-04-29] MEDS ORDERED: PHENOL/SODIUM PHENOLATE 100 SPRAY/177 ML BOTTLE PO PRN (14:21)
--- NOTE | 2018-04-29 15:17 | PDOC PROGRESS REPORT ---
Subjective Progress Note for:: 04/29/18 Subjective:: Patient is comfortably in the bed she is less anxious than yesterday. Still complaining of occasional left-sided chest pain on deep breaths. She is getting Dilaudid on a regular basis. No acute events in the last 24 hours. Patient is in the bed complains of tightness in the left side of her chest. She is getting pain medications on a regular basis. She has left-sided PE. Per the hematology recommendations she is on Xarelto 15 mg p.o. twice daily. She is off the Lovenox. Acute events in the last 24 hours. Blood pressures are running borderline low patient told me that is her baseline. 04/29/2018 patient comfortably in the bed complaining of sore throat she is requesting Chloraseptic sprays. Other than that no complaints. No acute events in the last 24 hours. Reason For Visit: PULMONARY EMBOLISM Physical Exam Vital Signs: Temp Pulse Resp BP Pulse Ox 98.4 F 99 20 97/41 L 94 04/29/18 12:09 04/29/18 12:09 04/29/18 12:09 04/29/18 12:09 04/29/18 08:05 Intake & Output 04/28/18 04/29/18 04/30/18 06:59 06:59 06:59 Intake Total 1366 590 Output Total 1900 400 Balance -534 190 Weight 97 kg 96.8 kg General appearance: PRESENT: no acute distress Head exam: PRESENT: atraumatic Eye exam: PRESENT: PERRLA Mouth exam: PRESENT: moist Neck exam: ABSENT: carotid bruit, JVD, lymphadenopathy, thyromegaly Respiratory exam: PRESENT: clear to auscultation john. ABSENT: rales, rhonchi, wheezes Cardiovascular exam: PRESENT: RRR. ABSENT: diastolic murmur, rubs, systolic murmur GI/Abdominal exam: PRESENT: normal bowel sounds, soft. ABSENT: distended, guarding, mass, organolmegaly, rebound, tenderness Extremities exam: PRESENT: full ROM. ABSENT: calf tenderness, clubbing, pedal edema Neurological exam: PRESENT: alert, awake, oriented to person, oriented to place , oriented to time, oriented to situation, CN II-XII grossly intact. ABSENT: motor sensory deficit Psychiatric exam: PRESENT: appropriate affect, normal mood. ABSENT: homicidal ideation, suicidal ideation Results Laboratory Results: 04/29/18 04:57 04/27/18 06:13 04/29/18 04/29/18 04:57 09:25 WBC 4.9 RBC 4.33 Hgb 11.9 L Hct 35.5 L MCV 82 MCH 27.5 MCHC 33.5 RDW 14.2 H Plt Count 191 Carbonic Acid 1.14 HCO3/H2CO3 Ratio 21:1 ABG pH 7.44 ABG pCO2 38.0 ABG pO2 69.2 L ABG HCO3 25.0 H ABG O2 Saturation 94.5 ABG Base Excess 0.9 FiO2 ROOM AIR 04/26/18 04/26/18 04/27/18 13:51 17:26 00:59 CK-MB (CK-2) < 0.22 < 0.22 < 0.22 Troponin I < 0.012 < 0.012 < 0.012 NT-Pro-B Natriuret Pep 04/27/18 06:13 CK-MB (CK-2) Troponin I NT-Pro-B Natriuret Pep 59 Impressions: Chest/Abdomen CTA 04/26/18 10:13 IMPRESSION: Acute pulmonary embolus to the left lower lobe pulmonary artery. Venous Doppler Study 04/26/18 13:23 IMPRESSION: NO EVIDENCE DVT OR SVT IN EITHER LEG. Chest X-Ray 04/28/18 00:00 IMPRESSION: Subsegmental atelectasis at the left lower lobe. Assessment & Plan - Diagnosis (1) Acute pulmonary embolism Qualifiers: Pulmonary embolism type: unspecified Acute cor pulmonale presence: without acute cor pulmonale Qualified Code(s): I26.99 - Other pulmonary embolism without acute cor pulmonale Is this a current diagnosis for this admission?: Yes Plan: 04/26/2018 27-year-old female came to the emergency room with severe chest pain left-sided chest pain and severe shortness of breath since yesterday. The CT of the chest shows acute pulmonary embolism in the left lower lobe artery. The plan is to admit her as inpatient in ICU. Going to be on oxygen 2 L nasal cannula. Echocardiogram was requested. Lovenox 1 mg/kg subcu every 12 hours was started. She was also placed on Coumadin 5 mg p.o. nightly. We are going to check PT/INR on regular basis. Patient's edema d-dimer is 3.4. BNP is also low. Which was normal sinus rhythm. She is going to be on a telemetry monitoring. Ultrasound of the lower extremities was requested. To rule out DVT test for protein C and protein S was requested. I am going to put her on morphine 2 mg IV every 4 as needed for chest pain. Also going to get DuoNeb nebulizations every 6 as needed for shortness of breath. Hematology consult and pulmonary consult was requested. In my opinion she has several risk factors like oral contraceptive use, obesity, recent history of cholecystectomy. Smoking is also a risk factor . 04/[id number] female admitted for pulmonary embolism she came in with severe shortness of breath and left-sided pleuritic chest pain. CT of the chest shows left lower lobe PE involving the left lower lobe pulmonary artery. She was started on Lovenox 1 mg/kg every 12 hours and Coumadin 5 mg p.o. nightly. INR today is 1.0. Hematology talked to the patient and put a note that they recommended Xarelto or Eliquis instead of Coumadin. I started on Xarelto 10 mg p.o. today. We are going to go ahead and give the Lovenox dose this morning and stop the evening dose of Lovenox. Antiphospholipid antibody results are pending. It is getting pain medications [id number] she is on oxygen 2 L nasal cannula she is using BiPAP at night, echocardiogram was requested Dr. FRANCISCO is going to read the echocardiogram. 04/28/2018-patient was started on Xarelto 15 mg p.o. twice daily yesterday. Lovenox was discontinued. Patient is complete 22 complaining of left-sided chest tightness. She is getting the pain medications on a regular basis. Pulse ox is stable. Pulse ox is 97% on 2 L. I think patient is afraid to take a deep breaths and would ask for flutter valve to prevent atelecstasis . It is downgraded to telemetry. Order was placed. All 2017 patient is on Xarelto 15 mg p.o. twice a day. Lovenox was discontinued. Dr. Dias is following the patient. Patient still complaining of right-sided chest pain. It was expected and explained to her that pleuritic chest pain to several weeks to resolve. Patient off the oxygen on room air pulse ox are 94-96%. (2) Obesity (BMI 30-39.9) Is this a current diagnosis for this admission?: Yes Plan: 04/26/2018-patient's BMI is more than 35. It may be risk factor for pulmonary embolism. Diet and exercise weight loss was advised. 04/27/2018 patient's BMI is 40 it is a risk factor for pulmonary embolism diet and exercise weight loss was advised. 04/28/2018 patient is BMI is 40 diet and exercise weight loss advised. Dietary consult was requested. 04/29/2018 BMI is more than 40 again diet exercise weight loss was stressed. (3) Smoker Is this a current diagnosis for this admission?: Yes Plan: 04/26/2018 patient is a chronic smoker she is on Chantix at home smokes 3-4 cigarettes/day I am going to put her on nicotine patch. Smoking cessation counseling was provided for more than 10 minutes. 04/27/2018 patient has history of chronic smoking she was started on nicotine patch. 04/28/2018 patient is on nicotine patch. 04/29/2018 plan to continue the current management. (4) Gall bladder disease Is this a current diagnosis for this admission?: Yes (5) Sleep apnea Qualifiers: Sleep apnea type: obstructive Qualified Code(s): G47.33 - Obstructive sleep apnea (adult) (pediatric) Is this a current diagnosis for this admission?: Yes Plan: 04/26/2018 patient has history of obstructive sleep apnea. She is uses BiPAP at night. Be going to resume the BiPAP partners here at night. 04/27/2018 patient has history of obstructive sleep apnea uses BiPAP at night. We will plan to continue the same management in the hospital. 04/28/2018 patient has history of obstructive sleep apnea on BiPAP at night. Present management. 04/29/2018 patient has history of obstructive sleep apnea she is on BiPAP she is using the BiPAP at nights. No complications. (6) Sore throat Is this a current diagnosis for this admission?: Yes Plan: 04/29/2018 patient complaint of sore throat started on Chloraseptic sprays. - Time Time Spent with patient: 15-24 minutes Smoking Cessation Education: 3 to 10 minutes Medications reviewed and adjusted accordingly: Yes Anticipated discharge: Home
[2018-04-29 15:25] LABS: APPEARANCE,URINE SLIGHTLY-CLOUDY; BILIRUBIN,URINE NEGATIVE (NEGATIVE); COLOR,URINE YELLOW; GLUCOSE, URINE NEGATIVE (NEGATIVE); KETONES,URINE NEGATIVE (NEGATIVE); LEUKOCYTE ESTERASE,URINE SMALL (NEGATIVE); NITRITE,URINE NEGATIVE (NEGATIVE); PROTEIN,URINE NEGATIVE (NEGATIVE); URINE SPECIFIC GRAVITY 1.006; UROBILINOGEN,URINE NEGATIVE mg/dL (<2.0)
[2018-04-29] MEDS: MIRTAZAPINE 15 MG TABLET PO SCH (21:05)
[2018-04-29] MEDS: ARIPIPRAZOLE 5 MG TABLET PO SCH (21:05)
[2018-04-30] MEDS: HYDROMORPHONE HCL INJ/PF 2 MG/ML AMPULE IV PRN ×2 (01:20→08:33)
[2018-04-30] MEDS: CLONIDINE HCL 0.1 MG TABLET PO SCH (01:36)
[2018-04-30] MEDS ORDERED: TRAMADOL HCL 50 MG TABLET PO PRN (08:56)
[2018-04-30] MEDS ORDERED: IBUPROFEN 600 MG TABLET PO PRN (08:57)
[2018-04-30] MEDS: RIVAROXABAN 15 MG TABLET PO SCH (10:27)
[2018-04-30] MEDS: CYCLOSPORINE 0.05% OPH EMULSIO 0.4 ML DROPERETTE OU SCH (10:27)
[2018-04-30] MEDS: FAMOTIDINE INJ/PF 20 MG/2 ML SDV IV SCH (10:28)
[2018-04-30 13:52] VITALS: BP 109/56
--- NOTE | 2018-05-02 17:21 | PDOC DISCHARGE SUMMARY ---
General - Admit/Disc Date/PCP Admission Date/Primary Care Provider: 04/26/18 12:57 ILANA SANFORD, Discharge Date: 04/30/18 - Discharge Diagnosis (1) Acute pulmonary embolism Is this a current diagnosis for this admission?: Yes Summary: The patient presented to the emergency department with dyspnea and severe pleuritic left-sided chest pain. CT of the chest revealed an acute pulmonary embolus to the left lower lobe artery. Venous Doppler studies were negative for DVT. Echocardiogram demonstrated LVEF 65% with normal LV diastolic dysfunction and otherwise unremarkable exam. The pulmonary embolus is considered to be provoked secondary to recent surgical procedure (cholecystectomy 2 weeks ago close), oral contraceptive use, obesity with sedentary lifestyle, and current tobacco dependency. The patient was placed on Xarelto 15 mg twice daily and provided a prescription for 21 days of therapy followed by Xarelto 20 mg once daily. She was initially supported with supplemental oxygen which has been weaned and the patient is now ambulatory on room air maintaining saturations and without significant tachycardia or dyspnea. The patient is discharged home in stable condition with prescriptions for Xarelto, [place], Lidoderm patches, and NicoDerm patches. She is instructed to follow-up with her primary care provider within 1 week, with her [facility]PAREL MANAGER to discuss reduced/discontinued hormone replacement therapies, and to return to the emergency department as needed for any concerning symptoms. (2) Hormone replacement therapy Is this a current diagnosis for this admission?: Yes Summary: The patient reports that she is on chronic oral contraceptive medications for hormone replacement following oophorectomy. She is advised to follow-up with her APPAREL MANAGER to discuss alternate/lowered hormone dosing. She is also thoroughly educated that as she likely will require long-term hormone therapy, it becomes exceedingly important for her to discontinue any tobacco use and to focus on weight reduction and increased physical activity. (3) Sleep apnea Is this a current diagnosis for this admission?: Yes Summary: Patient endorses a history of MAXIM with home BiPAP use. BiPAP was provided during her admission without complications. (4) Smoker Is this a current diagnosis for this admission?: Yes Summary: Smoking cessation was strongly encouraged. Patient was provided NicoDerm patches at discharge. (5) Morbid obesity with BMI of 40.0-44.9, adult Is this a current diagnosis for this admission?: Yes Summary: Patient's BMI 40.5. She was educated on the importance of weight reduction for overall improvement in health. (6) Pleuritic chest pain Is this a current diagnosis for this admission?: Yes Summary: Secondary to pulmonary embolus. Patient is discharged with prescriptions for [place], Lidoderm patches, and instructed to continue utilizing incentive spirometer hourly while awake. (7) Gall bladder disease Is this a current diagnosis for this admission?: Yes Summary: Recent cholecystectomy; follow-up with primary care or surgery as previously advised. - Additional Information Resuscitation Status: Full Code Discharge Diet: Regular, Other (Comments) Discharge Activity: Activity As Tolerated, Balance Activity w/Rest, Slowly Increase Activity Prescriptions: Hydrocodone/Acetaminophen [[place] 5-325 mg Tablet] 1 - 2 tab PO Q4H #30 tablet Lidocaine [Lidoderm 5% (700 mg) Transdermal Patch] 1 patch TP DAILY #30 adh..patch Nicotine [Nicoderm 14 mg/24 Hr Transdermal Patch] 1 patch TD DAILY #30 patch.td24 Rivaroxaban [Xarelto 15 mg Tablet] 15 mg PO BID #42 tablet Rivaroxaban [Xarelto] 20 mg PO DAILY #30 tablet Home Medications: Aripiprazole [Abilify 15 mg Tablet] 15 mg PO QHS 04/26/18 Clonidine HCl [Catapres 0.3 mg Tablet] 0.3 mg PO QHS 04/26/18 Dexlansoprazole [Dexilant 60 mg Capsule] 60 mg PO DAILY 04/26/18 Famotidine [Pepcid 20 mg Tablet] 20 mg PO DAILY 04/26/18 Gabapentin [Neurontin 300 mg Capsule] 300 mg PO HSP PRN 04/26/18 Hydroxyzine HCl [Atarax 25 mg Tablet] 25 mg PO QHS 04/26/18 Mirtazapine [Remeron 15 mg Tablet] 15 mg PO QHS 04/26/18 Norethindrone AC-Eth Estradiol [Femhrt 0.5 mg-2.5 Mcg Tablet] 1 tab PO DAILY 04/26/18 Acetaminophen [Tylenol 325 mg Tablet] 650 mg PO Q4HP PRN tablet 04/30/18 Hydrocodone/Acetaminophen [[place] 5-325 mg Tablet] 1 - 2 tab PO Q4H #30 tablet 04/30/18 Lidocaine [Lidoderm 5% (700 mg) Transdermal Patch] 1 patch TP DAILY #30 adh..patch 04/30/18 Nicotine [Nicoderm 14 mg/24 Hr Transdermal Patch] 1 patch TD DAILY #30 patch.td24 04/30/18 Rivaroxaban [Xarelto 15 mg Tablet] 15 mg PO BID #42 tablet 04/30/18 Rivaroxaban [Xarelto] 20 mg PO DAILY #30 tablet 04/30/18 History of Present Illness History of Present Illness: Per H&P by Dr. Ac: NINA HURTADO is a 27 year old female with history of recent gallbladder removal 2 weeks ago with a [facility], obesity, on oral contraceptive pills, history of migraine headaches, anxiety, gastric further reflux disease, bipolar disorder, insomnia, obstructive sleep apnea on BiPAP, came to the emergency room with complaints of sudden onset of left-sided chest pain yesterday while driving. He was driving from school to the house it was around 5 miles a distance all of a sudden she got a severe left-sided chest pain associated with shortness of breath, according to her pain scale is more than 10 x 10 when it started associated with severe shortness of breath could not catch her breath at all. She is also given the history of fever of 101 yesterday took some Tylenol. She did come to the ER yesterday because she has to take care of her kids today she has the time to come to the emergency room for further evaluation. In the ER a CT of the chest was done found to have left lower lung pulmonary embolism patient was started on Lovenox 90 mg subcu in the ER medical consult was called for admission. Patient is complaining of severe pain at the time of examination by me also in shortness of breath and have the anxiety attack looks nervous and anxious looks anxious and nervous. She said she never had a history of any blood clots before never had any DVTs never had any pulmonary embolisms. She is given the history that she has cholecystectomy in [facility] 2 weeks ago is short his stay procedure and she is also taking oral contraceptive pills for hormone replacement therapy. According to her the cholecystectomy was uncomplicated. She is supposed to see the surgeon next Sunday for a follow-up visit. Physical Exam Vital Signs: Temp Pulse Resp BP Pulse Ox 98.9 F 86 16 109/56 L 95 04/30/18 13:47 04/30/18 13:47 04/30/18 13:47 04/30/18 13:47 04/30/18 13:47 General appearance: PRESENT: no acute distress, morbidly obese, well-developed, well-nourished Head exam: PRESENT: atraumatic, normocephalic Eye exam: PRESENT: conjunctiva pink, EOMI, PERRLA. ABSENT: scleral icterus Ear exam: PRESENT: normal external ear exam Mouth exam: PRESENT: moist, tongue midline Neck exam: ABSENT: carotid bruit, JVD, lymphadenopathy, thyromegaly Respiratory exam: PRESENT: clear to auscultation john. ABSENT: rales, rhonchi, wheezes Cardiovascular exam: PRESENT: RRR. ABSENT: diastolic murmur, rubs, systolic murmur Pulses: PRESENT: normal dorsalis pedis pul Vascular exam: PRESENT: normal capillary refill GI/Abdominal exam: PRESENT: normal bowel sounds, soft. ABSENT: distended, guarding, mass, organolmegaly, rebound, tenderness Rectal exam: PRESENT: deferred Extremities exam: PRESENT: full ROM. ABSENT: calf tenderness, clubbing, pedal edema Neurological exam: PRESENT: alert, awake, oriented to person, oriented to place, oriented to time, oriented to situation, CN II-XII grossly intact. ABSENT: motor sensory deficit Psychiatric exam: PRESENT: appropriate affect, normal mood. ABSENT: homicidal ideation, suicidal ideation Skin exam: PRESENT: dry, intact, warm. ABSENT: cyanosis, rash Results Laboratory Results: 04/29/18 04:57 04/27/18 06:13 04/26/18 04/26/18 04/26/18 09:40 09:40 13:51 CK-MB (CK-2) < 0.22 Troponin I < 0.012 < 0.012 NT-Pro-B Natriuret Pep 64 04/26/18 04/27/18 04/27/18 17:26 00:59 06:13 CK-MB (CK-2) < 0.22 < 0.22 Troponin I < 0.012 < 0.012 NT-Pro-B Natriuret Pep 59 Impressions: Chest/Abdomen CTA 04/26/18 10:13 IMPRESSION: Acute pulmonary embolus to the left lower lobe pulmonary artery. Venous Doppler Study 04/26/18 13:23 IMPRESSION: NO EVIDENCE DVT OR SVT IN EITHER LEG. Chest X-Ray 04/28/18 00:00 IMPRESSION: Subsegmental atelectasis at the left lower lobe. Qualifiers - * PATIENT BEING DISCHARGED WITH ANY OF THE FOLLOWING DIAGNOSIS: VTE (PE or DVT) Plan Discharge Plan: Discharged home with self-care. Follow-up with primary care provider within 1 week. Recommend following up with APPAREL MANAGER within the next 4-6 weeks to discuss alternate hormone replacement therapy dosing. Return to the emergency department as needed for any concerning symptoms. STOP Smoking.
== END 2018-04-30 14:57 | disposition home or self-care (01) | DRG 176 ==
LOC: ER 08:09 → EH 12:57 → ICU 15:55 → 4N 04-28 18:42
PROVIDERS: ADMIT Family Medicine; ATTEND Family Medicine
PROC: 5A09457 Assistance with Respiratory Ventilation, 24-96 Consecutive Hours, Continuous Positive Airway Pressure (ICD-10-PCS; principal; 2018-04-27)
DX: I26.99 Other pulmonary embolism without acute cor pulmonale (principal); Z68.41 Body mass index [BMI] 40.0-44.9, adult; G47.33 Obstructive sleep apnea (adult) (pediatric); E66.01 Morbid (severe) obesity due to excess calories; F41.9 Anxiety disorder, unspecified; K21.9 Gastro-esophageal reflux disease without esophagitis; F31.9 Bipolar disorder, unspecified; F43.10 Post-traumatic stress disorder, unspecified; J44.9 Chronic obstructive pulmonary disease, unspecified; J02.9 Acute pharyngitis, unspecified; M19.90 Unspecified osteoarthritis, unspecified site; F17.210 Nicotine dependence, cigarettes, uncomplicated; G89.29 Other chronic pain; M54.5 Low back pain; Z96.642 Presence of left artificial hip joint; Z90.49 Acquired absence of other specified parts of digestive tract; Z79.899 Other long term (current) drug therapy; Z79.3 Long term (current) use of hormonal contraceptives; Z88.6 Allergy status to analgesic agent; Z91.038 Other insect allergy status; Z91.040 Latex allergy status; Z91.013 Allergy to seafood; Z88.8 Allergy status to other drugs, medicaments and biological substances; Z91.018 Allergy to other foods; Z82.61 Family history of arthritis; Z82.49 Family history of ischemic heart disease and other diseases of the circulatory system; Z83.6 Family history of other diseases of the respiratory system; Z82.3 Family history of stroke; Z83.3 Family history of diabetes mellitus; Z80.9 Family history of malignant neoplasm, unspecified
CPT/HCPCS: 36415; 36600; 71046; 71275; 80053; 80061; 81001; 82553; 82803; 83036; 83735; 83880; 84443; 84484; 85025; 85027; 85379; 85597; 85598; 85610; 85613; 85730; 85732; 86146; 86147; 86148; 86849; 93005; 93010; 93306; 93970; 94660; 96361; 96372; 96374; 99291; J1170; J1650; J1885; J2405; J3490; J7030; S0028

== ENCOUNTER 2018-05-19 20:23 | Emergency (ER) | payer MEDICAID ==
[2018-05-19 21:00] LABS: HEMATOCRIT 39.5 % (36.0-47.0); HEMOGLOBIN 13.5 g/dL (12.0-15.5); MEAN CORPUSCULAR HEMOGLOBIN 27.5 pg (27.0-33.4); MEAN CORPUSCULAR HGB CONC 34.1 g/dL (32.0-36.0); MEAN CORPUSCULAR VOLUME 81 fl (80-97); PLATELET COUNT 216 10^3/uL (150-450); RED BLOOD COUNT 4.89 10^6/uL (3.72-5.28); RED CELL DISTRIBUTION WIDTH 14.4 % (11.5-14.0); WHITE BLOOD COUNT 8.1 10^3/uL (4.0-10.5)
[2018-05-19 21:12] LABS: ANION GAP 13 (5-19); BLOOD UREA NITROGEN 14 mg/dL (7-20); CALCIUM 9.5 mg/dL (8.4-10.2); CARBON DIOXIDE 23 mmol/L (22-30); CHLORIDE 105 mmol/L (98-107); GLUCOSE 133 mg/dL (75-110); POTASSIUM 3.5 mmol/L (3.6-5.0); SODIUM 140.6 mmol/L (137-145)
[2018-05-19 21:24] LABS: NT PRO BNP 28 pg/mL (<125)
[2018-05-19 21:25] LABS: TROPONIN I < 0.012 ng/mL
--- NOTE | 2018-05-19 21:55 | RADIOLOGY REPORT (SQ) ---
EXAM DESCRIPTION: CT CHEST ANGIOGRAPHY WITHOUT THEN WITH IV CONTRAST, three-dimensional reconstructions COMPLETED DATE/TME: 05/19/2018 20:46 CLINICAL HISTORY: 27 years, Female, possible pe, diff breathing Compared to prior CT chest dated 04/26/2018. This exam was performed according to our departmental dose-optimization program which includes automated exposure control, adjustment of the mA and/or kVp according to patient size and/or use of iterative reconstruction technique where applicable. FINDINGS: Pulmonary arteries are well opacified. There are mild filling defects noted in the left lower lobe pulmonary arteries suspicious for pulmonary embolism. However, these are much reduced in size from the prior study where there filling defects in the same location. Aorta is within normal limits with no dissection or aneurysm. No significant mediastinal, hilar or axillary lymphadenopathy. No pleural or pericardial effusions. The visualized upper abdominal organs are unremarkable. Evaluation of the lung parenchyma demonstrates trachea and major airways to be patent. No suspicious lung nodules or masses. No consolidations to suggest pneumonia. IMPRESSION: Significant improvement in previously seen findings of pulmonary embolism with no new pulmonary emboli noted.
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
[2018-05-20 00:13] VITALS: BP 102/66
== END 2018-05-20 00:13 | disposition home or self-care (01) ==
LOC: ER 20:23
DX: R07.81 Pleurodynia (principal); I26.99 Other pulmonary embolism without acute cor pulmonale; Z79.01 Long term (current) use of anticoagulants; R06.02 Shortness of breath; F17.200 Nicotine dependence, unspecified, uncomplicated; Z88.5 Allergy status to narcotic agent; Z91.040 Latex allergy status; Z88.8 Allergy status to other drugs, medicaments and biological substances; Z88.6 Allergy status to analgesic agent; Z91.018 Allergy to other foods
CPT/HCPCS: 36415; 71275; 80048; 83880; 84484; 85027; 99285